=== PATIENT | male | born 1955 | race Caucasian/White ===

== ENCOUNTER 2016-03-09 10:14 | Emergency (ER) | payer OTHER ==
[2016-03-09 10:30] VITALS: TEMP 97
[2016-03-09] MEDS ORDERED: IPRATROPIUM-ALBUTEROL 3 ML NEB INHALATION STA (10:46)
[2016-03-09] MEDS ORDERED: KETOROLAC 30 MG/ML 1 ML VIAL IVP STA (10:46)
[2016-03-09] MEDS ORDERED: BENZONATATE 100 MG CAP PO STA (10:46)
--- NOTE | 2016-03-09 10:55 | ED ---
General Adult HPI - General Chief complaint: Abdominal Pain Stated complaint: left side pain x 3 days Time Seen by Provider: 03/09/16 10:40 Source: patient, RN notes reviewed Mode of arrival: ambulatory Limitations: no limitations - History of Present Illness Initial comments: 60-year-old male presents to emergency room chief complaint of left-sided rib pain. Patient states that he's had a cough for about 5 days now. Patient states about 3 days ago he started noticing pain to the left side of the ribs whenever she coughed in pain when he twists and moves. Patient states that he has had some sputum production that is clearing color when he coughs. Patient does admit to a history of asthma and a history of smoking. Patient states it feels like an achy type pain as if someone punched him in the left side. Patient states he does not feel short of breath with this. Patient states that he does have a history of heart attacks but states this feels nothing like that. Patient states that he was concerned due to the continued coughing pains without that he should be evaluated.Patient denies any recent fever, chills, shortness of breath, back pain, abdominal pain, nausea vomiting, numbness or tingling, dysuria or hematuria, constipation or diarrhea, headaches or visual changes, or any other current symptoms. - Related Data Home Medications Medication Instructions Recorded Confirmed Aspirin 81 mg PO DAILY 10/07/15 03/09/16 Atenolol 25 mg PO BID 10/07/15 03/09/16 Clopidogrel [Plavix] 75 mg PO DAILY 10/07/15 03/09/16 Naproxen 500 mg PO Q12HR 10/07/15 03/09/16 Ranitidine HCl [Zantac] 150 mg PO BID 10/07/15 03/09/16 Albuterol Inhaler [Ventolin Hfa 1 - 2 puff INHALATION RT-Q6H PRN 03/09/16 Inhaler] Beclomethasone Dipropionate [Qvar 1 puff INHALATION RT-DAILY 03/09/16 03/09/16 80 mcg] Cetirizine HCl [Zyrtec] 10 mg PO DAILY 03/09/16 03/09/16 Fluticasone Nasal [place] [Flonase 2 spr EA NOSTRIL DAILY PRN 03/09/16 03/09/16 Nasal [place]] Loratadine [Claritin] 10 mg PO DAILY 03/09/16 03/09/16 Testosterone Cypionate 200 mg IM Q7D 03/09/16 03/09/16 [Depo-Testosterone] Previous Rx's Medication Instructions Recorded Atorvastatin [Lipitor] 80 mg PO HS #30 tab 08/18/13 Lisinopril [Zestril] 2.5 mg PO DAILY #30 tab 08/18/13 Nitroglycerin Sl Tabs [Nitrostat] 0.4 mg SUBLINGUAL Q5M PRN #20 tab 08/18/13 HYDROcodone/APAP 5-325MG [Ross 1 tab PO Q4HR PRN #12 tab 10/07/15 5-325] Albuterol Inhaler [Ventolin Hfa 1 - 2 puff INHALATION Q4-6H PRN #1 03/09/16 Inhaler] inhaler Benzonatate [Tessalon Perles] 100 mg PO TID #20 cap 03/09/16 Hydrocodone/Acetaminophen [Ross 1 each PO Q6HR PRN #20 tab 03/09/16 5-325] Levofloxacin [Levaquin] 750 mg PO DAILY #5 tab 03/09/16 Allergies Allergy/AdvReac Type Severity Reaction Status Date / Time No Known Allergies Allergy Verified 03/09/16 12:33 Review of Systems ROS Statement: Those systems with pertinent positive or pertinent negative responses have been documented in the HPI. ROS Other: All systems not noted in ROS Statement are negative. Past Medical History Past Medical History: Coronary Artery Disease (CAD) History of Any Multi-Drug Resistant Organisms: None Reported Past Surgical History: Heart Catheterization With Stent Past Anesthesia/Blood Transfusion Reactions: No Reported Reaction Past Psychological History: No Psychological Hx Reported Smoking Status: Former smoker Past Alcohol Use History: Rare Past Drug Use History: None Reported General Exam - General Exam Comments Initial Comments: General: The patient is awake and alert, in no distress, and does not appear acutely ill. Eye: Pupils are equal, round and reactive to light, extra-ocular movements are intact; there is normal conjunctiva bilaterally. No signs of icterus. Ears, nose, mouth and throat: There are moist mucous membranes and no oral lesions. Neck: The neck is supple, there is no tenderness. Cardiovascular: There is a regular rate and rhythm. No murmur, rub or gallop is appreciated. Tenderness with patient along the left lower rib cage. Respiratory: Lungs are clear to auscultation, respirations are non-labored, breath sounds are equal. No wheezes, stridor, rales, or rhonchi. Gastrointestinal: Soft, non-distended, non-tender abdomen without masses or organomegaly noted. There is no rebound or guarding present. No CVA tenderness. Bowel sounds are unremarkable. Back: There is no tenderness to palpation in the midline. Patient does notice pain to the left side of the rib cage with twisting. There is no obvious deformity. No rashes noted. Musculoskeletal: Normal ROM, no tenderness, There is no pedal edema. There is no calf tenderness or swelling. Sensation intact. Pulses equal bilaterally 2+. Neurological: CN II-XII intact, There are no obvious motor or sensory deficits. Coordination appears grossly intact. Speech is normal. Skin: Skin is warm and dry and no rashes or lesions are noted. Psychiatric: Cooperative, appropriate mood & affect, normal judgment. Limitations: no limitations Course Vital Signs 03/09/16 03/09/16 03/09/16 10:26 11:17 11:23 Temperature 97.0 F L Pulse Rate 89 88 90 Respiratory 18 Rate Blood Pressure 152/86 O2 Sat by Pulse 95 Oximetry Medical Decision Making - Medical Decision Making 60-year-old male presents emergency Department what appears to be a costochondritis. Due to the patient's history and we will get blood work and assess an EKG on the patient. We will also give him medication to help with his discomfort. At some x-ray and lab work was reviewed. At this time the x- ray does show a left-sided pneumonia. Patient also doesn't fit of left-sided costochondritis from the cough. We will start her on antibiotics and inhaler pain medication as well as cough suppressant. We did discuss follow-up and return parameters. Patient is in agreement with this plan and all his questions have been answered. He will be discharged. - Lab Data Result diagrams: 03/09/16 11:10 03/09/16 11:10 Lab Results 03/09/16 03/09/16 03/09/16 Range/Units 11:10 11:10 11:10 WBC 11.1 H (3.8-10.6) k/uL RBC 5.17 (4.30-5.90) m/uL Hgb 16.4 (13.0-17.5) gm/dL Hct 50.4 (39.0-53.0) % MCV 97.6 (80.0-100.0) fL MCH 31.6 (25.0-35.0) pg MCHC 32.4 (31.0-37.0) g/dL RDW 13.7 (11.5-15.5) % Plt Count 277 (150-450) k/uL Neutrophils % 76 % Lymphocytes % 14 % Monocytes % 5 % Eosinophils % 2 % Basophils % 1 % Neutrophils # 8.4 H (1.3-7.7) k/uL Lymphocytes # 1.5 (1.0-4.8) k/uL Monocytes # 0.6 (0-1.0) k/uL Eosinophils # 0.2 (0-0.7) k/uL Basophils # 0.1 (0-0.2) k/uL PT (9.0-12.0) sec INR (<1.1) APTT (22.0-30.0) sec D-Dimer (<0.60) mg/L FEU Sodium 142 (137-145) mmol/L Potassium 4.6 (3.5-5.1) mmol/L Chloride 104 (98-107) mmol/L Carbon Dioxide 26 (22-30) mmol/L Anion Gap 12 mmol/L BUN 12 (9-20) mg/dL Creatinine 1.01 (0.66-1.25) mg/dL Est GFR (MDRD) Af Amer >60 (>60 ml/min/1.73 sqM) Est GFR (MDRD) Non-Af >60 (>60 ml/min/1.73 sqM) Glucose 134 H (74-99) mg/dL Calcium 9.3 (8.4-10.2) mg/dL Magnesium 2.0 (1.6-2.3) mg/dL Total Bilirubin 0.7 (0.2-1.3) mg/dL AST 29 (17-59) U/L ALT 36 (21-72) U/L Alkaline Phosphatase 77 (38-126) U/L Total Creatine Kinase 160 (55-170) U/L CK-MB (CK-2) 3.8 H* (0.0-2.4) ng/mL CK-MB (CK-2) Rel Index 2.4 Troponin I <0.012 (0.000-0.034) ng/mL Total Protein 7.5 (6.3-8.2) g/dL Albumin 4.0 (3.5-5.0) g/dL 03/09/16 Range/Units 11:10 WBC (3.8-10.6) k/uL RBC (4.30-5.90) m/uL Hgb (13.0-17.5) gm/dL Hct (39.0-53.0) % MCV (80.0-100.0) fL MCH (25.0-35.0) pg MCHC (31.0-37.0) g/dL RDW (11.5-15.5) % Plt Count (150-450) k/uL Neutrophils % % Lymphocytes % % Monocytes % % Eosinophils % % Basophils % % Neutrophils # (1.3-7.7) k/uL Lymphocytes # (1.0-4.8) k/uL Monocytes # (0-1.0) k/uL Eosinophils # (0-0.7) k/uL Basophils # (0-0.2) k/uL PT 10.7 (9.0-12.0) sec INR 1.1 (<1.1) APTT 24.1 (22.0-30.0) sec D-Dimer 0.25 (<0.60) mg/L FEU Sodium (137-145) mmol/L Potassium (3.5-5.1) mmol/L Chloride (98-107) mmol/L Carbon Dioxide (22-30) mmol/L Anion Gap mmol/L BUN (9-20) mg/dL Creatinine (0.66-1.25) mg/dL Est GFR (MDRD) Af Amer (>60 ml/min/1.73 sqM) Est GFR (MDRD) Non-Af (>60 ml/min/1.73 sqM) Glucose (74-99) mg/dL Calcium (8.4-10.2) mg/dL Magnesium (1.6-2.3) mg/dL Total Bilirubin (0.2-1.3) mg/dL AST (17-59) U/L ALT (21-72) U/L Alkaline Phosphatase (38-126) U/L Total Creatine Kinase (55-170) U/L CK-MB (CK-2) (0.0-2.4) ng/mL CK-MB (CK-2) Rel Index Troponin I (0.000-0.034) ng/mL Total Protein (6.3-8.2) g/dL Albumin (3.5-5.0) g/dL 03/09/16 12:42 normal sinus rhythm 100 bpm, normal axis, no atopy, no S-T depressions or elevations, - Radiology Data Radiology results: report reviewed, image reviewed Disposition Clinical Impression: Pneumonia involving left lung, Costochondritis, acute Disposition: HOME SELF-CARE Condition: Stable Instructions: Bacterial Pneumonia (ED), Costochondritis (ED) Additional Instructions: Please use medication as discussed. Please follow up with family doctor if symptoms have not improved over the next two days. Please return to the emergency room if your symptoms increase or worsen or for any other concerns. Prescriptions: Albuterol Inhaler [Ventolin Hfa Inhaler] 1 - 2 puff INHALATION Q4-6H PRN #1 inhaler PRN Reason: Cough Benzonatate [Tessalon Perles] 100 mg PO TID #20 cap Hydrocodone/Acetaminophen [Ross 5-325] 1 each PO Q6HR PRN #20 tab PRN Reason: Pain Levofloxacin [Levaquin] 750 mg PO DAILY #5 tab Referrals: Cecilio Montero MD [Primary Care Provider] - 1-2 days Time of Disposition: 12:45
[2016-03-09 11:31] LABS: Basophils # (A) 0.1 k/uL (0-0.2); Basophils % (A) 1 %; CH 31.8; CHCM 32.7; Eosinophils # (A) 0.2 k/uL (0-0.7); Eosinophils % (A) 2 %; HCT 50.4 % (39.0-53.0); HDW 2.24; HGB 16.4 gm/dL (13.0-17.5); Luc # (Auto) 0.28; Luc % (Auto) 3; Lymphocytes # (A) 1.5 k/uL (1.0-4.8); Lymphocytes % (A) 14 %; MCH 31.6 pg (25.0-35.0); MCHC 32.4 g/dL (31.0-37.0); MCV 97.6 fL (80.0-100.0); Mean Platelet Volume 6.4; Monocytes # (A) 0.6 k/uL (0-1.0); Monocytes % (A) 5 %; Neutrophils # (A) 8.4 k/uL (1.3-7.7); Neutrophils % (A) 76 %; RBC 5.17 m/uL (4.30-5.90); RDW 13.7 % (11.5-15.5); WBC 11.1 k/uL (3.8-10.6); WBC (Perox) 11.03
[2016-03-09 11:57] LABS: ALT 36 U/L (21-72); AST 29 U/L (17-59); Alkaline Phosphatase 77 U/L (38-126); Anion Gap 12 mmol/L; Blood Urea Nitrogen 12 mg/dL (9-20); Calcium 9.3 mg/dL (8.4-10.2); Carbon Dioxide 26 mmol/L (22-30); Chloride 104 mmol/L (98-107); Glucose 134 mg/dL (74-99); Non-African American GFR(MDRD) >60 (>60 ml/min/1.73 sqM); Potassium 4.6 mmol/L (3.5-5.1); Sodium 142 mmol/L (137-145); Total Bilirubin 0.7 mg/dL (0.2-1.3); Total Protein 7.5 g/dL (6.3-8.2)
--- NOTE | 2016-03-09 11:58 | XR ---
EXAMINATION TYPE: XR chest 2V DATE OF EXAM: 03/09/2016 11:52 AM COMPARISON: 08/16/2013 INDICATION: Chest pain TECHNIQUE: Frontal and lateral views of the chest are obtained. FINDINGS: The heart size is normal. The pulmonary vasculature is normal. Subtle left perihilar infiltrate may be present. Correlate for atelectasis or early pneumonia. Consid er viral pneumonia. IMPRESSION: 1. There may be a subtle left perihilar infiltrate present. Clinical correlation recommended.
[2016-03-09 12:07] LABS: INR 1.1 (<1.1); Partial Thromboplastin Time 24.1 sec (22.0-30.0); Prothrombin Time 10.7 sec (9.0-12.0)
[2016-03-09 12:17] LABS: Creatine Kinase 160 U/L (55-170)
[2016-03-09 12:30] LABS: Troponin I <0.012 ng/mL (0.000-0.034)
[2016-03-09 12:32] LABS: Creatine Kinase MB 3.8 ng/mL (0.0-2.4)
[2016-03-09 13:00] VITALS: BP 152/70; PULSE 91; RESP 20
== END 2016-03-09 13:00 | disposition home or self-care (01) ==
LOC: EC 10:14
DX: J18.9 Pneumonia, unspecified organism (principal); M94.0 Chondrocostal junction syndrome [Tietze]; I25.10 Atherosclerotic heart disease of native coronary artery without angina pectoris; Z87.891 Personal history of nicotine dependence; Z95.5 Presence of coronary angioplasty implant and graft; Z79.82 Long term (current) use of aspirin; Z79.899 Other long term (current) drug therapy; Z79.02 Long term (current) use of antithrombotics/antiplatelets; Z79.1 Long term (current) use of non-steroidal anti-inflammatories (NSAID); Z79.51 Long term (current) use of inhaled steroids
CPT/HCPCS: 99284; 96374; 36415; 94640; 93005; 85379; 80053; 82550; 82553; 83735; 84484; 85025; 85610; 85730; 71020; J1885

== ENCOUNTER → 2016-03-14 | Outpatient (CLI) | payer OTHER ==
--- NOTE | 2016-03-14 09:41 | CT ---
EXAMINATION TYPE: CT chest w con DATE OF EXAM: 03/14/2016 9:30 AM COMPARISON: 08/09/2015, chest x-ray 03/09/2016 HISTORY: Abn CXR, Lt sided chest pain CT DLP: 841 mGycm Automated exposure control for dose reduction was used. CONTRAST: CT scan of the chest is performed with IV Contrast, patient injected with 100 ml mL of Omnipaque 300. FINDINGS: LUNGS: The lungs are grossly clear, there is no consolidative pneumonia. There is a lobulated nodule in the anterior segment left upper lobe measuring 9 mm. Additional smaller 3 mm nodule seen in image 42 within the left upper lobe. Calcified nodule seen image 46 within the superior segment right lower lobe. Underlying changes of COPD suspected.. There is no pleural effusion or pneumothorax seen. T he tracheobronchial tree is patent. MEDIASTINUM: There are no greater than 1 cm hilar or mediastinal lymph nodes. No pericardial effusi on is seen. Coronary artery calcification noted. OTHER: Mild hypertrophic changes of the spine. IMPRESSION: 1. No evidence to suggest pneumonia or infiltrate. However there is a 1 cm nodular density in the lef t upper lobe. On the coronal images could potentially be postinflammatory. Neoplastic process not exc luded. New from the prior exam. Recommend one-month follow-up CT chest. If finding persists then isak d recommend PET scan. 2. Additional tiny less than 5 mm pulmonary nodules. 3. Correlate for COPD
== END | disposition home or self-care (01) ==
LOC: RADCTMAIN 08:56
PROVIDERS: ATTEND Internal Medicine
DX: J98.4 Other disorders of lung (principal); R91.8 Other nonspecific abnormal finding of lung field; R07.9 Chest pain, unspecified; R05 Cough
CPT/HCPCS: 71260; Q9967

== ENCOUNTER → 2016-03-24 | Outpatient (CLI) | payer OTHER ==
--- NOTE | 2016-03-24 15:33 | NM ---
EXAMINATION TYPE: NM bone scan whole body DATE OF EXAM: 03/24/2016 3:26 PM COMPARISON: NONE HISTORY: R91.1 Lt upper Lobe Nodule, R07.81 Rib Pain Delayed whole-body scanning was performed following the injection of 25.8 mCi Tc 99m MDP. Images acq uired 3 hours post injection. FINDINGS: Probable degenerative uptake involving the upper cervical segment to the right of midline. Degenerati ve uptake about the shoulders, sternoclavicular joints, mid thoracic spine and lower lumbar spine. No intense uptake to suggest metastatic disease at this time. IMPRESSION: 1. No convincing evidence to suggest metastatic disease at this time. 2. Probable degenerative uptake of the cervical spine which can be confirmed radiographically.
== END | disposition home or self-care (01) ==
LOC: RADNMMAIN 11:21
PROVIDERS: ATTEND Internal Medicine
DX: R07.81 Pleurodynia (principal)
CPT/HCPCS: 78306; A9503

== ENCOUNTER → 2016-04-04 | Outpatient (CLI) | payer OTHER ==
--- NOTE | 2016-04-04 15:59 | CT ---
EXAMINATION TYPE: CT abdomen w con DATE OF EXAM: 04/04/2016 2:57 PM COMPARISON: NONE HISTORY: Left sided pain for [address] DLP: 1388 mGycm Automated exposure control for dose reduction was used. TECHNIQUE: Helical acquisition of images was performed from the lung bases through the top of iliac crest to include entire abdomen. CONTRAST: Performed with Oral Contrast and with IV Contrast, patient injected with 100 mL of Omnipaque 300. FINDINGS: LUNG BASES: Tiny granuloma noted within the right lower lobe appears calcified. Correlate for COPD. L inear changes involving the left lung base suggestive of atelectasis or scar.. LIVER/GB: No significant abnormality is appreciated. PANCREAS: No significant abnormality is seen. SPLEEN: No significant abnormality is seen. ADRENALS: No significant abnormality is seen. KIDNEYS: No significant abnormality is seen. BOWEL: Changes of colonic diverticulosis.. LYMPH NODES: No pathologic adenopathy. OSSEOUS STRUCTURES: No significant abnormality is seen. OTHER: Atherosclerotic changes aorta. IMPRESSION: NO ACUTE PROCESS.
== END | disposition home or self-care (01) ==
LOC: RADCTMAIN 13:51
PROVIDERS: ATTEND Internal Medicine
DX: R10.12 Left upper quadrant pain (principal); R91.1 Solitary pulmonary nodule
CPT/HCPCS: 74160; Q9967

== ENCOUNTER → 2017-04-11 | Outpatient (CLI) | payer OTHER ==
--- NOTE | 2017-04-11 14:11 | CT ---
EXAMINATION TYPE: CT chest wo con DATE OF EXAM: 04/11/2017 COMPARISON: Prior CT chest study March 14, [address] low-dose lung screening study August 09, 2015 HISTORY: Hemoptysis CT DLP: 812 mGycm. Automated Exposure Control for Dose Reduction was Utilized. TECHNIQUE: CT scan of the thorax is performed without IV contrast. FINDINGS: LUNGS: Mild underlying emphysematous change is present. No suspicious nodule or mass is present. Ther e is interval resolution of nodular consolidation in the anterior left upper lobe from prior study. N o pleural effusion or pneumothorax is seen bilaterally. No suspicious consolidation or focal groundgl ass opacity is seen. Linear scarring in the inferior lingula and left lung base near diaphragm is red emonstrated. The tracheobronchial tree is patent. Slightly elevated left hemidiaphragm is again seen. MEDIASTINUM: Lack of IV contrast is noted to limit evaluation for mediastinal and especially hilar ad enopathy. There are no definitive greater than 1 cm hilar or mediastinal lymph nodes. No cardiomega ly or pericardial effusion is seen. There is coronary artery calcification and/or right coronary sten t noted. OTHER: Visualized liver is heterogeneously hypodense consistent with fatty infiltration. Some mild fa t replaced atrophy of the pancreas is seen. [id number] multilevel spurring in the midthoracic s pine is present. IMPRESSION: Mild emphysematous change without acute pulmonary process. Interval resolution of left an terior upper lobe nodular consolidation. No significant new or acute findings seen to account for pat ient's symptoms of hemoptysis.
== END | disposition home or self-care (01) ==
LOC: RADCTMAIN 08:29
PROVIDERS: ATTEND Internal Medicine Critical Care Medicine
DX: J43.9 Emphysema, unspecified (principal); R04.2 Hemoptysis
CPT/HCPCS: 71250

== ENCOUNTER → 2018-09-08 | Outpatient (CLI) | payer OTHER ==
--- NOTE | 2018-09-08 15:55 | MR ---
EXAMINATION TYPE: MR knee RT wo con DATE OF EXAM: 09/08/2018 COMPARISON: Radiographs of the knees dated 02/19/2015. HISTORY: Pain in right knee TECHNIQUE: Multiplanar, multisequence imaging of the right knee is performed without IV contrast. FINDINGS: MEDIAL MENISCUS: There is a radial tear of the free edge of the meniscal body and posterior horn of t he medial meniscus. Very small 2 mm parameniscal cyst is present. 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 CRUCIATE LIGAMENTS: The anterior and posterior cruciate ligaments are intact and unremarkable. COLLATERAL LIGAMENTS: The medial collateral ligament and lateral collateral ligament complex are inta ct. However there is high signal seen superficial and deep to the medial collateral ligament. EXTENSOR MECHANISM: Visualized quadriceps and patellar tendons are intact. There is minimal increased signal of the originating fibers of the patellar tendon and insertional fibers of the quadriceps ten don. EFFUSION: There is a small suprapatellar joint effusion with thickening of the superior patellar ret inaculum. Internal complexity within the joint effusion is indicative of mild synovitis. Patellar ret inacula are intact. POPLITEAL CYST: No popliteal/pleitez cyst. TRICOMPARTMENT SPACES: Small tricompartmental osteophytes are seen. Joint spaces are maintained. CARTILAGE: There is generalized cartilaginous thinning with partial-thickness cartilaginous defect of the weightbearing surface measuring 1.8 cm with corresponding partial-thickness defect of the tibial plateau measuring approximately 1 cm. Within the medial compartment there is signal heterogeneity of the cartilage without focal defect. Within the patellofemoral compartment there is multifocal fissur ing and undermining with near complete loss of the medial patellar facet cartilage and some subchondr al cyst formation of the patella. BONE MARROW SIGNAL: Interosseous ganglion cyst is seen of the tibia. OTHER: Nonspecific subcutaneous edema is present of the infrapatellar soft tissues. Fluid is seen at the myotendinous junction ventrally of the popliteus muscle indicative of low-grade tear. IMPRESSION: 1. Radial tear of the free edge of the medial meniscal body and posterior horn of the medial meniscus with associated 2 mm parameniscal cyst. 2. 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 3. Mild tricompartmental arthropathy and moderate chondrosis most severe in the patellofemoral compar tment as detailed above. 4. Findings compatible with mild medial collateral ligament sprain and insertional tendinosis of the quadriceps tendon as well as originating fiber tendinosis of the patellar tendon. 5. Small complex suprapatellar joint effusion indicative of synovitis and superior plical thickening, correlate for plical syndrome.
== END | disposition home or self-care (01) ==
LOC: RADMRIMAIN 14:38
PROVIDERS: ATTEND Internal Medicine
DX: S83.241A Other tear of medial meniscus, current injury, right knee, initial encounter (principal); M17.11 Unilateral primary osteoarthritis, right knee; M65.861 Other synovitis and tenosynovitis, right lower leg; M67.863 Other specified disorders of tendon, right knee

== ENCOUNTER → 2018-10-22 | Outpatient (CLI) | payer OTHER ==
[2018-10-22 12:52] LABS: Basophils # (A) 0.1 k/uL (0-0.2); Basophils % (A) 2 %; Eosinophils # (A) 0.4 k/uL (0-0.7); Eosinophils % (A) 6 %; HCT 41.3 % (39.0-53.0); HGB 13.1 gm/dL (13.0-17.5); Lymphocytes # (A) 1.8 k/uL (1.0-4.8); Lymphocytes % (A) 26 %; MCH 30.7 pg (25.0-35.0); MCHC 31.8 g/dL (31.0-37.0); MCV 96.6 fL (80.0-100.0); Mean Platelet Volume 6.7; Monocytes # (A) 0.4 k/uL (0-1.0); Monocytes % (A) 6 %; Neutrophils # (A) 3.8 k/uL (1.3-7.7); Neutrophils % (A) 56 %; Platelet Count 291 k/uL (150-450); RBC 4.28 m/uL (4.30-5.90); RDW 14.9 % (11.5-15.5); WBC 6.8 k/uL (3.8-10.6)
[2018-10-22 19:03] LABS: African American GFR (CKD) 93.7 (60.0-200.0); Albumin 3.9 g/dL (3.80-4.90); Albumin/Globulin Ratio 1.86 (1.60-3.17); Anion Gap 6.6 mmol/L (4.00-12.00); Calcium 8.9 mg/dL (8.7-10.3); Carbon Dioxide 27.4 mmol/L (21.6-31.8); Globulin 2.1 g/dL (1.6-3.3); Potassium 4.7 mmol/L (3.5-5.5); Total Bilirubin 0.2 mg/dL (0.2-1.2)
== END | disposition home or self-care (01) ==
LOC: LABWHC1 11:49
PROVIDERS: ATTEND Internal Medicine
DX: Z01.812 Encounter for preprocedural laboratory examination (principal)
CPT/HCPCS: 36415; 80053; 85025

== ENCOUNTER → 2018-12-17 | Outpatient (CLI) | payer OTHER ==
--- NOTE | 2018-12-17 16:19 | CT ---
EXAMINATION TYPE: CT chest wo con DATE OF EXAM: 12/17/2018 COMPARISON: CT chest 04/11/2017 HISTORY: SOB CT DLP: 1300.6 mGycm, Automated exposure control for dose reduction was used. CONTRAST: None TECHNIQUE: Axial images were obtained at 1 mm thick sections at 10 mm intervals. This will limit po rtions of the examination which may not be visualized within the [id number]. Images were obtained in the prone and supine views. FINDINGS: Portion of the thyroid visualized is normal. No suspicious lung nodules or focal infiltrat es are present.r a benign-appearing calcified granulomas in the posterior lateral right lung 0.3 cm. Series 9 image 23. No enlarged mediastinal or hilar adenopathy is evident. The ascending aorta diameter at the level o f the main pulmonary artery is 3.5 cm. The main pulmonary artery diameter at the bifurcation is 2.6 cm. Moderate coronary artery calcification is present. Limited CT sections are obtained through the upper abdomen. Abdomen is essentially unremarkable. IMPRESSIONS: 1. Normal High Resolution Chest CT. 2. Moderate coronary artery calcification
== END ==
LOC: RADCTMAIN 15:24
PROVIDERS: ATTEND Internal Medicine
DX: I25.10 Atherosclerotic heart disease of native coronary artery without angina pectoris (principal); R05 Cough; R06.02 Shortness of breath
CPT/HCPCS: 71250

== ENCOUNTER → 2018-12-22 | Outpatient (CLI) | payer OTHER ==
[2018-12-22 19:50] LABS: T4, Free (Free Thyroxine) 0.8 ng/dL (0.80-1.80)
== END | disposition home or self-care (01) ==
LOC: LABWHC1 13:28
PROVIDERS: ATTEND Internal Medicine Interventional Cardiology
DX: E78.2 Mixed hyperlipidemia (principal)
CPT/HCPCS: 36415; 84439; 84443

== ENCOUNTER 2019-08-12 12:56 | Emergency (ER) | payer OTHER ==
[2019-08-12 13:32] VITALS: BP 140/79; PULSE 88; RESP 20; TEMP 97.2
[2019-08-12] MEDS ORDERED: KETOROLAC 60 MG/2 ML VIAL IM STA (13:44)
--- NOTE | 2019-08-12 13:47 | ED ---
General Adult HPI - General Chief complaint: Extremity Problem,Nontraumatic Stated complaint: Left knee pain Time Seen by Provider: 08/12/19 13:25 Source: patient, RN notes reviewed Limitations: altered mental status - History of Present Illness Initial comments: Patient is a pleasant 62-year-old male presenting to the emergency Department with complaints of left knee pain. Onset of symptoms was yesterday. Patient does do a lot of walking. Patient has a known bad right knee that is considering surgery. Patient states after walking a lot yesterday his left knee has been bothering him. Discomfort is left anterior lower knee. No leg pain. No calf pain. Patient normally does not have discomfort of his left knee. No fever or redness or swelling. - Related Data Home Medications Medication Instructions Recorded Confirmed Aspirin 81 mg PO DAILY 10/07/15 03/09/16 Atenolol 25 mg PO BID 10/07/15 03/09/16 Clopidogrel [Plavix] 75 mg PO DAILY 10/07/15 03/09/16 Naproxen 500 mg PO Q12HR 10/07/15 03/09/16 Ranitidine HCl [Zantac] 150 mg PO BID 10/07/15 03/09/16 Albuterol Inhaler (Mhu) [Ventolin 1 - 2 puff INHALATION RT-Q6H PRN 03/09/16 03/09/16 Hfa Inhaler] Beclomethasone Dipropionate [Qvar 1 puff INHALATION RT-DAILY 03/09/16 03/09/16 80 mcg] Cetirizine HCl [Zyrtec] 10 mg PO DAILY 03/09/16 03/09/16 Fluticasone [place] [Flonase 2 spr EA NOSTRIL DAILY PRN 03/09/16 03/09/16 Nas[place]] Loratadine [Claritin] 10 mg PO DAILY 03/09/16 03/09/16 Testosterone Cypionate 200 mg IM Q7D 03/09/16 03/09/16 [Depo-Testosterone] Previous Rx's Medication Instructions Recorded Atorvastatin [Lipitor] 80 mg PO HS #30 tab 08/18/13 Lisinopril [Zestril] 2.5 mg PO DAILY #30 tab 08/18/13 Nitroglycerin Sl Tabs [Nitrostat] 0.4 mg SUBLINGUAL Q5M PRN #20 tab 08/18/13 HYDROcodone/APAP 5-325MG [[place] 1 tab PO Q4HR PRN #12 tab 10/07/15 5-325] Albuterol Inhaler (Mhu) [Ventolin 1 - 2 puff INHALATION Q4-6H PRN #1 03/09/16 Hfa Inhaler (Mhu)] inhaler Benzonatate [Tessalon Perles] 100 mg PO TID #20 cap 03/09/16 Hydrocodone/Acetaminophen [[place] 1 each PO Q6HR PRN #20 tab 03/09/16 5-325] Levofloxacin [Levaquin] 750 mg PO DAILY #5 tab 03/09/16 Cyclobenzaprine [Flexeril] 10 mg PO TID PRN #12 tablet 08/12/19 Allergies Allergy/AdvReac Type Severity Reaction Status Date / Time No Known Allergies Allergy Verified 03/09/16 12:33 Review of Systems ROS Statement: Those systems with pertinent positive or pertinent negative responses have been documented in the HPI. ROS Other: All systems not noted in ROS Statement are negative. Constitutional: Denies: fever Eyes: Denies: eye pain ENT: Denies: ear pain Respiratory: Denies: cough Cardiovascular: Denies: chest pain Endocrine: Denies: fatigue Gastrointestinal: Denies: abdominal pain Genitourinary: Denies: dysuria Musculoskeletal: Reports: as per HPI. Denies: back pain Skin: Denies: rash Neurological: Denies: weakness Past Medical History Past Medical History: Coronary Artery Disease (CAD) History of Any Multi-Drug Resistant Organisms: None Reported Past Surgical History: Heart Catheterization With Stent Past Anesthesia/Blood Transfusion Reactions: No Reported Reaction Past Psychological History: No Psychological Hx Reported Smoking Status: Former smoker Past Alcohol Use History: Rare Past Drug Use History: None Reported General Exam Limitations: altered mental status General appearance: alert, in no apparent distress Head exam: Present: normocephalic Eye exam: Present: normal appearance Neck exam: Present: normal inspection Respiratory exam: Present: normal lung sounds bilaterally Cardiovascular Exam: Present: regular rate, normal rhythm Expanded Peripheral pulses: 2+: Posterior Tibialis (R), Posterior Tibialis (L), Dorsalis Pedis (R), Dorsalis Pedis (L) Extremities exam: Present: tenderness (Patient has mild tenderness left anterior medial knee below the joint in the area of the proximal tibia. No warmth or erythema. Distally the extremity is neurovascular intact.) Neurological exam: Present: alert. Absent: motor sensory deficit Psychiatric exam: Present: normal affect, normal mood Skin exam: Present: normal color. Absent: erythema Course Vital Signs 08/12/19 13:18 Temperature 97.2 F L Pulse Rate 88 Respiratory 20 Rate Blood Pressure 140/79 O2 Sat by Pulse 96 Oximetry Medical Decision Making - Medical Decision Making Patient reevaluated and updated. Patient is agreeable to Sean wrap. Patient would like to try a few muscle relaxers to see if that helps. Patient is advised follow-up with orthopedics. - Radiology Data Radiology results: image reviewed (X-ray left knee reveals no acute process) Disposition Clinical Impression: Knee pain, left Disposition: HOME SELF-CARE Condition: Stable Instructions (If sedation given, give patient instructions): Knee Sprain (ED) Additional Instructions: Please follow-up with orthopedics and primary care physician in the next couple days for recheck. Ice to affected area. Limited walking with left knee. Continue [id number] Motrin as needed. Return for increased pain, swelling, redness, fevers, worsening or changing symptoms or other concerns. Prescriptions: Cyclobenzaprine [Flexeril] 10 mg PO TID PRN #12 tablet PRN Reason: Pain Is patient prescribed a controlled substance at d/c from ED?: No Referrals: Cecilio Montero MD [Primary Care Provider] - 1-2 days Time of Disposition: 15:13
--- NOTE | 2019-08-12 14:55 | XR ---
EXAMINATION TYPE: XR knee complete LT DATE OF EXAM: 08/12/2019 CLINICAL HISTORY: pain TECHNIQUE: Three views of the left knee are obtained. COMPARISON: None. FINDINGS: There is no acute fracture/dislocation. The tri-compartment joint spaces appear within no rmal limits. The overlying soft tissue appears unremarkable. IMPRESSION: There is no acute fracture or dislocation ICD 10 NO FRACTURE, INITIAL EVALUATION
== END 2019-08-12 15:20 | disposition home or self-care (01) ==
LOC: EC 12:56
DX: M25.562 Pain in left knee (principal); R41.82 Altered mental status, unspecified; I25.10 Atherosclerotic heart disease of native coronary artery without angina pectoris; Z79.82 Long term (current) use of aspirin; Z79.02 Long term (current) use of antithrombotics/antiplatelets; Z79.1 Long term (current) use of non-steroidal anti-inflammatories (NSAID); Z95.5 Presence of coronary angioplasty implant and graft; Z87.891 Personal history of nicotine dependence
CPT/HCPCS: 73562; 96372; 99283; J1885

== ENCOUNTER → 2019-08-16 | Outpatient (CLI) | payer OTHER ==
[2019-08-16 16:00] LABS: HCT 43.6 % (39.0-53.0); HGB 14.3 gm/dL (13.0-17.5); MCH 32.7 pg (25.0-35.0); MCHC 32.9 g/dL (31.0-37.0); MCV 99.5 fL (80.0-100.0); Platelet Count 250 k/uL (150-450); RBC 4.38 m/uL (4.30-5.90); WBC 8.8 k/uL (3.8-10.6)
[2019-08-16 16:02] LABS: Appearance,Urine Clear (Clear); Bilirubin,Urine Negative (Negative); Blood,Urine Negative (Negative); Color,Urine Yellow; Glucose,Urine (UA) Negative (Negative); Hyaline Casts,Urine 7 /lpf (0-2); Ketones,Urine Negative (Negative); Leukocyte Esterase,Urine Trace (Negative); Mucus,Urine Rare /hpf; Nitrite,Urine Negative (Negative); Protein,Urine Negative (Negative); RBC,Urine 1 /hpf (0-5); Specific Gravity,Urine 1.021 (1.001-1.035); Squamous Epithelial Cell,Urine <1 /hpf (0-4); Urobilinogen,Urine <2.0 mg/dL (<2.0); WBC,Urine 3 /hpf (0-5)
[2019-08-16 16:10] LABS: Prothrombin Time 10.2 sec (9.0-12.0)
[2019-08-16 16:11] LABS: Calcium 8.8 mg/dL (8.4-10.2); Potassium 4.3 mmol/L (3.5-5.1); Total Bilirubin 0.3 mg/dL (0.2-1.3); Total Protein 7.4 g/dL (6.3-8.2)
== END | disposition home or self-care (01) ==
LOC: LABPAT 14:21
PROVIDERS: ATTEND Orthopaedic Surgery
DX: Z01.812 Encounter for preprocedural laboratory examination (principal); Z11.59 Encounter for screening for other viral diseases
CPT/HCPCS: 80053; 85027; 85610; 85730; 81001; 87070; 36415; U0003

== ENCOUNTER 2019-08-29 10:35 | Day surgery (SDC) | payer OTHER ==
[2019-08-26 09:29] VITALS: BMI 41.1
[~2019-08-29 10:35] MED LIST: ACETAMINOPHEN TAB 500 MG TAB PO ONE; MELOXICAM 7.5 MG TAB PO ONE; ONDANSETRON 4 MG/2 ML VIAL IVP ONE; TRANEXAMIC ACID 1,000 MG in SODIUM CHLORIDE 0.9% 100 ML IVPB ONE; ceFAZolin 3 GM in SODIUM CHLORIDE 0.9% 100 ML IVPB ONE
[2019-08-29] MEDS ORDERED: ACETAMINOPHEN TAB 500 MG TAB ONE ×2 (10:58→11:22)
[2019-08-29] MEDS ORDERED: ONDANSETRON 4 MG/2 ML VIAL ONE (10:59)
[2019-08-29] MEDS ORDERED: LIDOCAINE 1% (10MG/ML) FOR IV START INTRADERMA ONE (11:30)
[2019-08-29] MEDS: LACTATED RINGERS 1,000 ML IV SCH ×4 (11:32→21:30)
[2019-08-29] MEDS ORDERED: DEXAMETHASONE SOD PHOSPHATE 10 MG/ML 1 ML VIAL IV ONE (11:32)
[2019-08-29] MEDS ORDERED: MIDAZOLAM 2 MG/2 ML VIAL IVP ONE (11:48)
[2019-08-29] MEDS ORDERED: SODIUM CHLORIDE 0.9% 100 ML BAG ONE (12:10)
[2019-08-29] MEDS ORDERED: PROPOFOL 10 MG/ML 20 ML VIAL IV ONE (12:10)
[2019-08-29] MEDS ORDERED: PHENYLEPHRINE-0.9% NACL SYG 1 MG/10 ML SYRINGE ONE (12:10)
[2019-08-29] MEDS ORDERED: TRANEXAMIC ACID 1,000 MG/10 ML VIAL ONE (12:10)
[2019-08-29] MEDS ORDERED: MIDAZOLAM 2 MG/2 ML VIAL ONE (12:10)
[2019-08-29] MEDS ORDERED: fentaNYL (PF) 50 MCG/ML 2 ML AMP ONE (12:10)
[2019-08-29] MEDS ORDERED: ceFAZolin 3,000 MG in SODIUM CHLORIDE 0.9% IRRIGATIO 3,000 ML IRRIGATION ONE (12:16)
[2019-08-29] MEDS: ROPIVACAINE 246.25 MG, EPINEPHrine 0.5 MG, KETOROLAC 30 MG, cloNIDine HCL/PF 80 MCG, WA... MISCELLANE ONE ×10 (12:47→13:18)
--- NOTE | 2019-08-29 14:05 | P.OP ---
Date of Procedure: 08/29/19 Procedure(s) Performed: PREOPERATIVE DIAGNOSIS: Right knee severe osteoarthritis with genu varum POSTOPERATIVE DIAGNOSIS: Right knee severe osteoarthritis with genu varum OPERATION: Right knee cemented total replacement arthroplasty. ANESTHESIA: Spinal ESTIMATED BLOOD LOSS: 75 ml. DISTRIBUTION ASSOCIATE: Viry Urbano PA-C (assistance with: patient positioning, retraction, exposure, hemostasis, leg positioning, implantation, irrigation, closure, dressing) COMPLICATIONS: None apparent. COMPONENTS IMPLANTED: Persona system from [employer] INDICATIONS: Mr. Balderrama is a 64-year-old male with a history of right knee osteoarthritis. The patient's knee is end-stage, and conservative management has failed. The operation of knee replacement has been discussed at length in the office, as well as potential risks and complications. These are inclusive of, but not limited to: bleeding, infection, scarring, discomfort, blood vessel and nerve damage, need for further surgery, failure to relieve symptoms, persistence, recurrence, or worsening of problems, loosening, dislocation, wear, blood clot, pulmonary embolism, , gait dysfunction, stiffness, and other risks as discussed in the office. The patient elects to proceed and the consent form has been signed. PROCEDURE: The patient was taken to the operating room and positioned on the operating room table in the supine position. Anesthesia was initiated. Care was taken to make sure that all pressure points were adequately padded. The ope rative lower extremity was prepped and draped in the usual aseptic fashion using ChloraPrep. Ioban drape was used for the case and the patient received intravenous antibiotics within one hour of the incision. A pneumotourniquet and leg lockhart were used for the case. The limb was exsanguinated with an Esmarch bandage and the tourniquet was inflated to 350 mmHg. Time-out was called confirming the patient's identity, side, procedure and administration of antibiotics and tranexamic acid. The incision was then created midline directly over the knee, carried down through skin and into the subcutaneous tissues and down to fascia. Full thickness subcutaneous medial flap was developed. Medial parapatellar arthrotomy was performed and the interior of the knee was inspected. There was end-stage osteoarthritis of the knee with a mild to moderate genu varum type deformity. The fat pad was excised and proximal medial release on the tibia was completed using meticulous dissection and a curved osteotome. The anterior cruciate ligament was taken down. Note was made of significant attrition of the anterior and significant degenerative appearance of the cruciate ligaments. The exposure was excellent. The knee was flexed 90 degrees and the patella was everted. A spot was chosen on the femur approximately 1 cm anterior to the posterior cruciate ligament insertion and an intramedullary hole was created within the femur. The intramedullary guide was then set to 5 degrees of valgus. The distal cutting block was attached and pinned into position. An appropriate amount of distal femoral resection was set. The oscillating saw was then used to make the distal femoral cut. This cut was confirmed to be flat with the flat end of an osteotome. The retractors were placed around the tibia and the tibial surface was addressed. The angle and depth of resection was adjusted using an extramedullary cutting guide. The guide had a built-in 3 degree posterior slope cut. Once the cutting guide was adjusted appropriately and in line with the axis of the tibia and confirmed to be in good position in relation to the second metatarsal and transmalleolar axis, the tibial cut was then created with protection of the posterior neurovascular structures and the collateral ligaments. The tibial cut surface was removed and sized. Femoral sizing was then accomplished using anterior referencing. Care was taken to analyze the posterior condyles for signs of deficiency or severe wear, and adjustments to the guide were made, as appropriate. 3 degree external rotation pins were placed. The cutting jig for the femur was applied to these pins. The planned cuts were further analyzed prior to performing them with the oscillating saw. No femoral notching was produced. Bone fragments were removed and the cut surfaces were finished, as necessary, with a reciprocating saw. Spacer block technique was then used to confirm that the flexion and extension gaps were equal. Soft tissue releases and adjustment of the tibial and/or femoral cuts were made, as necessary, until the gaps were equal. This included release of the posterior cruciate ligament, which was excessively tight in this patient. The femur was then further finished for a posterior cruciate ligament substituting component. Patellar resurfacing was performed using a reamer. The size of the required patellar component was estimated and the patellar surface was then reamed down to a residual thickness which would recreate the cantwell thickness with the component. The exact placement of the patellar component was adjusted for position based on preoperative x-rays and intraoperative findings. Prior to placing trial components, anesthetic solution consisting of ropivicaine with epinephrine, ketorolac, and clonidine was injected carefully and methodically in a grid pattern using aspiration technique into the soft tissue around the knee circumferentially, starting with the deeper tissues first and progressing to fascia, and then finally the skin/subcutaneous tissue. Particular care was taken when injecting the posterior capsule. The trial components were inserted. The tibial tray was allowed to self center and the patella was noted to track very well. The position of the tibial component was marked and the tibia was then finished for a stemmed tibial component. Cement was mixed on the back table and applied to the final components. Trial components were removed and the cut surfaces of the bone were pulse lavaged thoroughly and dried. Cement was then applied to the tibial surface and pressurized into the surface using finger pressurization technique. The tibial component was then applied and excess cement was removed after it was impacted securely and noted to be flush with the cut surface. In similar fashion, the cement was applied to the cut femoral surface, pressurized in using finger pressurization and the component was impacted into place. Excess cement was removed. The polyethylene spacer was then implanted and locked into position. The patellar component was then applied in similar technique and a patellar clamp was used to hold the patella in place as the cement hardened. Once the cement had fully hardened, the knee was reinspected. Any other cement extrusion was removed and final kinematic testing showed range of motion from 0 to 130 degrees with excellent stability, both medially and laterally and appropriate alignment of the leg. Patellar tracking was excellent. The knee was then thoroughly pulse lavaged with normal saline. The tourniquet was deflated and hemostasis was obtained with electrocautery and IV tranexamic acid, 1 g given at the start of the operation and 1 g at the start of closure. Closure was with #2 Ethibond in the fascia/capsule and supplemented with #2 Quill, 2-0 Vicryl suture was used for the subcutaneous tissues and 3-0 Quill for the skin. Dermabond/Steri-Strips were then applied. A lightly compressive dressing was applied using Webril and an Sean wrap. [facility] and [facility] recovery room in stable condition. Sponge and needle counts were correct.
[2019-08-29] MEDS ORDERED: LACTATED RINGERS 1,000 ML IV ONE (14:35)
[2019-08-29] MEDS ORDERED: HYDROmorphone 1 MG/ML 1 ML SYRINGE IVP PRN (14:48)
[2019-08-29] MEDS ORDERED: ONDANSETRON 4 MG/2 ML VIAL IVP PRN (14:48)
[2019-08-29] MEDS ORDERED: HYDROmorphone 0.5 MG/0.5 ML SYRINGE IVP PRN ×2 (14:48)
[2019-08-29] MEDS ORDERED: NALOXONE 0.4 MG/ML 1 ML VIAL IV PRN (14:48)
[2019-08-29] MEDS ORDERED: BISACODYL 10 MG SUPP RECTAL PRN (14:48)
[2019-08-29] MEDS ORDERED: MAGNESIUM HYDROXIDE 2,400 MG/10 ML CUP PO PRN (14:48)
--- NOTE | 2019-08-29 15:09 | XR ---
EXAMINATION TYPE: XR knee limited RT DATE OF EXAM: 08/29/2019 CLINICAL HISTORY: Postoperative evaluation Two views of the right knee are submitted. Identified are changes of total knee arthroplasty with femoral and tibial components appearing well seated. Postsurgical soft tissue changes are noted. Alignment is anatomic.
[2019-08-29] MEDS ORDERED: ROPIVACAINE 0.2%-NS ON-Q PUMP 1,090 MG, EMPTY PAIN BALL 1 EACH MISCELLANE PRN (15:26)
[2019-08-29] MEDS: HYDROmorphone 0.5 MG/0.5 ML SYRINGE IVP PRN ×2 (16:03→16:23)
[2019-08-29] MEDS: HYDROcodone/APAP 7.5-325MG 1 EACH TAB PO PRN (18:06)
[2019-08-29] MEDS ORDERED: SENNOSIDES-DOCUSATE SODIUM 1 EACH TAB PO SCH (21:00)
[2019-08-29] MEDS: ASPIRIN 81 MG PO SCH (21:30)
[2019-08-29] MEDS: ceFAZolin 3 GM in SODIUM CHLORIDE 0.9% 100 ML IVPB SCH (21:30)
[2019-08-30 02:20] VITALS: RESP 18
[2019-08-30] MEDS: ceFAZolin 3 GM in SODIUM CHLORIDE 0.9% 100 ML IVPB SCH (04:50)
[2019-08-30] MEDS: LACTATED RINGERS 1,000 ML IV SCH (04:50)
[2019-08-30] MEDS: HYDROcodone/APAP 7.5-325MG 1 EACH TAB PO PRN ×2 (06:11→11:22)
--- NOTE | 2019-08-30 06:27 | P.ANPRN ---
Procedure Note - Anesthesia - Nerve Block Performed Right Adductor Canal Infusion Time Out Performed: Yes Date of Procedure: 08/29/19 Procedure Start Time: 11:48 Procedure Stop Time: 11:59 Location of Patient: PreOp Indication: Acute Post-Operative Pain, Requested by Surgeon Sedation Type: Sedate with meaningful contact maintained Preparation: Sterile Prep, Sterile Dressing Position: Supine Catheter: Indwelling Needle Types: Pajunk Needle Gauge: 21 Ultrasound used to visualize needle placement: Yes Ultrasound used to observe medication spread: Yes Blood Aspirated: No Pain Paresthesia on Injection Noted: No Resistance on Injection: Normal Image Stored and Saved: Yes Events: Uneventful and Well Tolerated (Ropivacaine 0.5% 20 mL plus dexamethasone 4 mg)
[2019-08-30] MEDS: ASPIRIN 81 MG PO SCH (06:45)
[2019-08-30 07:57] VITALS: BP 146/86; PULSE 79; TEMP 98.4
[2019-08-30 07:58] LABS: Basophils % (A) 0 %; Eosinophils # (A) 0.1 k/uL (0-0.7); Eosinophils % (A) 0 %; HCT 39.7 % (39.0-53.0); HGB 12.7 gm/dL (13.0-17.5); Lymphocytes # (A) 1.3 k/uL (1.0-4.8); Lymphocytes % (A) 8 %; MCH 31.5 pg (25.0-35.0); MCHC 31.9 g/dL (31.0-37.0); MCV 98.6 fL (80.0-100.0); Monocytes # (A) 0.8 k/uL (0-1.0); Monocytes % (A) 5 %; Neutrophils # (A) 13.8 k/uL (1.3-7.7); Neutrophils % (A) 85 %; Platelet Count 231 k/uL (150-450); RBC 4.03 m/uL (4.30-5.90); RDW 12.6 % (11.5-15.5); WBC 16.2 k/uL (3.8-10.6)
[2019-08-30] MEDS ORDERED: MELOXICAM 7.5 MG TAB PO SCH (09:00)
--- NOTE | 2019-08-30 11:01 | P.DS ---
Providers Expected date of discharge: 08/30/19 Attending physician: Manny Contreras Primary care physician: Kylah Curtisbal - Discharge Diagnosis(es) (1) Osteoarthritis of right knee Current Visit: Yes Status: Acute (2) S/P total knee arthroplasty Current Visit: Yes Status: Acute Hospital Course: This is a 64-year-old male who was last seen with complaint of continued right knee pain. The patient has a known history of degenerative arthritis of the right knee and presents to discuss surgical options. After discussion and consideration the patient elects to proceed with total right knee arthroplasty. The patient is seen preoperatively by Dr. Montero and cleared for surgery. The patient is admitted to [facility] for total right knee arthroplasty. The procedures performed without complication or sequelae. Patient is doing well postoperatively. Vital signs are stable at discharge. Labs are stable at discharge. the patient is ambulating well with walker with minimal assistance. The patient is discharged to home on postop day #1. Please see orders and [place] [facility] [place]. Plan - Discharge Summary Discharge Rx Participant: No New Discharge Prescriptions: New Aspirin [Adult Low Dose Aspirin EC] 81 mg PO BID #60 tablet. Meloxicam [Mobic] 1 - 2 tab PO DAILY PRN #30 tab PRN Reason: Pain HYDROcodone/APAP 10-325MG [[place] 10-325] 1 - 2 tab PO Q4-6H PRN #50 tab PRN Reason: Pain Sennosides-Docusate Sodium [Senokot-S] 1 tab PO BID #60 tablet No Action Diclofenac Sodium Gel [Voltaren Gel] 4 gm TOPICAL QID Water Pill 1 tab PO DIRECTED PRN PRN Reason: edema Indomethacin [Indocin] 50 mg PO Q8HR PRN PRN Reason: Pain Rosuvastatin Calcium 5 mg PO DAILY Fluticasone/Umeclidin/Vilanter [Trelegy Ellipta 100-62.5-25] 100 inhalation INHALATION DAILY Triamterene/Hydrochlorothiazid [Triamterene-Hctz 37.5-25 mg Tb] 37.5 mg PO DAILY HYDROcodone/APAP 10-325MG [[place] 10-325] 10 mg PO Q8HR PRN PRN Reason: Pain Carvedilol [Coreg] 3.125 mg PO BID Aspirin [Adult Low Dose Aspirin EC] 81 mg PO DAILY Albuterol Sulfate [Ventolin HFA] 1 - 2 puff INHALATION Q6H PRN PRN Reason: Shortness Of Breath Umeclidinium [place] [Incruse Ellipta] 62.5 mcg INHALATION DAILY Discharge Medication List Diclofenac Sodium Gel [Voltaren Gel] 4 gm TOPICAL QID 08/24/19 [History] Water Pill 1 tab PO DIRECTED PRN 08/24/19 [History] Albuterol Sulfate [Ventolin HFA] 1 - 2 puff INHALATION Q6H PRN 08/29/19 [History] Aspirin [Adult Low Dose Aspirin EC] 81 mg PO BID #60 tablet. 08/29/19 [Rx] Aspirin [Adult Low Dose Aspirin EC] 81 mg PO DAILY 08/29/19 [History] Carvedilol [Coreg] 3.125 mg PO BID 08/29/19 [History] Fluticasone/Umeclidin/Vilanter [Trelegy Ellipta 100-62.5-25] 100 inhalation INHALATION DAILY 08/29/19 [History] HYDROcodone/APAP 10-325MG [[place] 10-325] 1 - 2 tab PO Q4-6H PRN #50 tab 08/29/19 [Rx] HYDROcodone/APAP 10-325MG [[place] 10-325] 10 mg PO Q8HR PRN 08/29/19 [History] Indomethacin [Indocin] 50 mg PO Q8HR PRN 08/29/19 [History] Meloxicam [Mobic] 1 - 2 tab PO DAILY PRN #30 tab 08/29/19 [Rx] Rosuvastatin Calcium 5 mg PO DAILY 08/29/19 [History] Sennosides-Docusate Sodium [Senokot-S] 1 tab PO BID #60 tablet 08/29/19 [Rx] Triamterene/Hydrochlorothiazid [Triamterene-Hctz 37.5-25 mg Tb] 37.5 mg PO DAILY 08/29/19 [History] Umeclidinium [place] [Incruse Ellipta] 62.5 mcg INHALATION DAILY 08/29/19 [History] Follow up Appointment(s)/Referral(s): Viry Urbano PAC [PHYSICIAN BIOMETRICS INSTRUCTOR] - 09/09/19 10:20 am Cecilio Montero MD [Primary Care Provider] - 09/05/19 10:40 am [facility] [NON-STAFF] - As Needed (walker) [facility], [NON-STAFF] - As Needed Patient Instructions/Handouts: *Surgery [facility] - Knee Arthroscopy Home Instructions Activity/Diet/Wound Care/Special Instructions: May d/c tonight if doing well. May bear wt as tolerated w walker. May shower. Keep Optifoam dressing intact. Discharge Disposition: HOME WITH HOME HEALTH SERVICES
== END 2019-08-30 12:35 | disposition home health service (06) ==
LOC: OR 10:35 → 4SSUR 14:40 → OR 08-30 12:35
PROVIDERS: ATTEND Orthopaedic Surgery
DX: M17.11 Unilateral primary osteoarthritis, right knee (principal); M21.161 Varus deformity, not elsewhere classified, right knee; J45.909 Unspecified asthma, uncomplicated; I10 Essential (primary) hypertension; I25.2 Old myocardial infarction; I25.10 Atherosclerotic heart disease of native coronary artery without angina pectoris; E78.2 Mixed hyperlipidemia; E66.01 Morbid (severe) obesity due to excess calories; Z85.828 Personal history of other malignant neoplasm of skin; Z95.5 Presence of coronary angioplasty implant and graft; Z87.891 Personal history of nicotine dependence; Z79.899 Other long term (current) drug therapy; Z79.51 Long term (current) use of inhaled steroids; Z79.82 Long term (current) use of aspirin; Z68.41 Body mass index [BMI] 40.0-44.9, adult
CPT/HCPCS: 27447; 97110; 97161; 64448; 76942; 85025; 73560; C1713; C1776; J2250; J0171; J1100; J0690 ×3; J2405; J3010; J1885; J2795 ×2; J2370; J2704; J0735; J1170; 88300

== ENCOUNTER 2019-09-05 13:46 | Observation (INO) | payer OTHER ==
[2019-09-05] MEDS ORDERED: MORPHINE SULFATE 4 MG/ML SYRINGE IM STA ×2 (14:48→15:54)
--- NOTE | 2019-09-05 15:29 | ED ---
General Adult HPI - General Chief complaint: Extremity Injury, Lower Stated complaint: Rt leg pain; Surgery 08/28 Time Seen by Provider: 09/05/19 14:19 Source: patient, RN notes reviewed, old records reviewed Mode of arrival: wheelchair Limitations: physical limitation - History of Present Illness Initial comments: 64-year-old male patient presents to the chief complaint of right lower extremity pain. Patient reports that he had a total knee replacement done [address] Contreras. He reports that since then he has been having pain in the right lower extremity. Also reports that he is swelling the right lower extremity. Denies any other areas of pain. Denies any falls or trauma. Denies any fevers or any other complaints. Systemic: Pt denies fatigue, fever/chills, rash. Pt denies weakness, night sweats, weight loss. Neuro: Pt denies headache, visual disturbances, syncope or pre-syncope. HEENT: Pt denies ocular discharge or irritation, otalgia, rhinorrhea, pharyngitis or notable lymphadenopathy. Cardiopulmonary: Pt denies chest pain, SOB, heart palpitations, dyspnea on exertion. Abdominal/GI: Pt denies abdominal pain, n/v/d. : Pt denies dysuria, burning w/ urination, frequency/urgency. Denies new onset urinary or bowel incontinence. Neuro: Pt denies new onset weakness, paresthesias. - Related Data Home Medications Medication Instructions Recorded Confirmed Albuterol Sulfate [Ventolin HFA] 2 puff INHALATION RT-Q6H PRN 08/29/19 09/05/19 Aspirin [Adult Low Dose Aspirin EC] 81 mg PO DAILY 08/29/19 09/05/19 Carvedilol [Coreg] 3.125 mg PO BID 08/29/19 09/05/19 Fluticasone/Umeclidin/Vilanter 1 puff INHALATION RT-DAILY 08/29/19 09/05/19 [Trelegy Ellipta 100-62.5-25] Rosuvastatin Calcium 5 mg PO DAILY 08/29/19 09/05/19 Triamterene/Hydrochlorothiazid 1 tab PO DAILY 08/29/19 09/05/19 [Triamterene-Hctz 37.5-25 mg Tb] Umeclidinium [place] [Incruse 1 puff INHALATION RT-DAILY 08/29/19 09/05/19 Ellipta] Fluticasone/Salmeterol 1 puff INHALATION RT-BID 09/05/19 09/05/19 [Fluticasone-Salmeterol 232-14] hydrOXYzine PAMOATE [Vistaril] 25 mg PO Q6H PRN 09/05/19 09/05/19 Previous Rx's Medication Instructions Recorded HYDROcodone/APAP 10-325MG [[place] 1 - 2 tab PO Q4-6H PRN #50 tab 08/29/19 10-325] Meloxicam [Mobic] 1 - 2 tab PO DAILY PRN #30 tab 08/29/19 Sennosides-Docusate Sodium 1 tab PO BID #60 tablet 08/29/19 [Senokot-S] Allergies Allergy/AdvReac Type Severity Reaction Status Date / Time No Known Allergies Allergy Verified 09/05/19 19:29 Review of Systems ROS Statement: Those systems with pertinent positive or pertinent negative responses have been documented in the HPI. ROS Other: All systems not noted in ROS Statement are negative. Past Medical History Past Medical History: Coronary Artery Disease (CAD), Myocardial Infarction ([place]) Additional Past Medical History / Comment(s): . History of Any Multi-Drug Resistant Organisms: None Reported Past Surgical History: Heart Catheterization With Stent, Joint Replacement Additional Past Surgical History / Comment(s): rt knee Past Anesthesia/Blood Transfusion Reactions: No Reported Reaction Past Psychological History: No Psychological Hx Reported Smoking Status: Never smoker Past Alcohol Use History: Rare Past Drug Use History: None Reported General Exam - General Exam Comments Initial Comments: Constitutional: NAD, AOX3, Pt has pleasant affect. HEENT: NC/AT, trachea midline, neck supple, no lymphadenopathy. Posterior pharynx non erythematous, without exudates. External ears appear normal, without discharge. Mucous membranes moist. Eyes PERRLA, EOM intact. There is no scleral icterus. No pallor noted. Cardiopulmonary: RRR, no murmurs, rubs or gallops, no JVD noted. Lungs CTAB in anterior and posterior veras. +1 right sided peripheral edema. Abdominal exam: Abdomen soft and non-distended. Abdomen non-tender to palpation in all 4 quadrants. Bowel sounds active in LLQ. No hepatosplenomegaly. No ecchymosis Neuro: CN II-XII grossly intact. No nuchal rigidity. No raccon eyes, no squires sign, no hemotympanum. No cervical spinal tenderness. MSK: Mild amount of erythema to right anterior knee, mild amount of warmth noted. There is soft tissue swelling on the right lower extremity. Tissue compartments are soft. Mild amount of right posterior calf tenderness, none left. Posterior tibialis and radial pulse +2 bilaterally. Sensation intact in upper and lower extremities. Limitations: physical limitation Course Vital Signs 09/05/19 09/05/19 13:51 18:50 Temperature 98.1 F 98.3 F Pulse Rate 83 77 Respiratory 18 20 Rate Blood Pressure 135/91 147/82 O2 Sat by Pulse 98 95 Oximetry Medical Decision Making - Medical Decision Making 64-year-old male patient who is one-week status post total knee replacement right side is been ED chief complaint of pain and swelling. Patient reports it has been ongoing since the surgery. Patient had an ultrasound earlier today however he is unable to tolerate the compressions therefore did not rule out a DVT. He is not having any other pain or any shortness of breath. Patient felt and are stable afebrile. Physical exam did display some erythema and warmth to the right knee. There is no purulent discharge noted. Laboratory investigations are unremarkable. Repeat ultrasound which patient tolerated display any sign of DVT. Plain film was negative. Knee prosthesis is in good position. Patient placed on vancomycin and Zosyn for possible postop infection. He'll be admitted to Dr. Colvin who accepts patient. Case discussed with Dr. Celestin. - Lab Data Result diagrams: 09/05/19 18:50 09/05/19 18:50 Lab Results 09/05/19 09/05/19 09/05/19 Range/Units 18:50 18:50 18:50 WBC 8.9 (3.8-10.6) k/uL RBC 4.32 (4.30-5.90) m/uL Hgb 13.4 (13.0-17.5) gm/dL Hct 42.1 (39.0-53.0) % MCV 97.5 (80.0-100.0) fL MCH 31.1 (25.0-35.0) pg MCHC 31.9 (31.0-37.0) g/dL RDW 13.0 (11.5-15.5) % Plt Count 351 (150-450) k/uL Neutrophils % 63 % Lymphocytes % 22 % Monocytes % 7 % Eosinophils % 4 % Basophils % 1 % Neutrophils # 5.6 (1.3-7.7) k/uL Lymphocytes # 1.9 (1.0-4.8) k/uL Monocytes # 0.6 (0-1.0) k/uL Eosinophils # 0.3 (0-0.7) k/uL Basophils # 0.1 (0-0.2) k/uL Sodium 136 L (137-145) mmol/L Potassium 3.8 (3.5-5.1) mmol/L Chloride 100 (98-107) mmol/L Carbon Dioxide 28 (22-30) mmol/L Anion Gap 8 mmol/L BUN 21 H (9-20) mg/dL Creatinine 1.16 (0.66-1.25) mg/dL Est GFR (CKD-EPI)AfAm 78 (>60 ml/min/1.73 sqM) Est GFR (CKD-EPI)NonAf 68 (>60 ml/min/1.73 sqM) Glucose 113 H (74-99) mg/dL Plasma Lactic Acid Amrit 1.2 (0.7-2.0) mmol/L Calcium 9.2 (8.4-10.2) mg/dL Total Bilirubin 0.7 (0.2-1.3) mg/dL AST 36 (17-59) U/L ALT 24 (4-49) U/L Alkaline Phosphatase 58 (38-126) U/L Total Protein 7.6 (6.3-8.2) g/dL Albumin 4.2 (3.5-5.0) g/dL Disposition Clinical Impression: Post-operative complication Disposition: ADMITTED IP TO THIS [facility] Condition: Serious Is patient prescribed a controlled substance at d/c from ED?: No Referrals: Cecilio Montero MD [Primary Care Provider] - 1-2 days
--- NOTE | 2019-09-05 17:03 | US ---
EXAMINATION TYPE: US venous doppler duplex LE RT DATE OF EXAM: 09/05/2019 4:49 PM COMPARISON: NONE CLINICAL HISTORY: pain s/p tka 1 wk ago. pain and swelling in right leg, no h/o dvt SIDE PERFORMED: right TECHNIQUE: The lower extremity deep venous system is examined utilizing real time linear array sonog kathrin with graded compression, doppler sonography and color-flow sonography. VESSELS IMAGED: External Iliac Vein (EIV) Common Femoral Vein Deep Femoral Vein Greater Saphenous Vein * Femoral Vein Popliteal Vein Small Saphenous Vein * Proximal Calf Veins (* superficial vessels) *repeat study from earlier today, patient could not tolerate any pressure during first exam making ex am limited* Right Leg: Negative for DVT IMPRESSION: Normal exam. No sign of right leg deep vein thrombosis.
[2019-09-05] MEDS ORDERED: PIPERACILLIN-TAZOBACTAM 3.375 GM in SODIUM CHLORIDE 0.9% 100 ML IVPB STA (17:19)
[2019-09-05] MEDS ORDERED: VANCOMYCIN IV PER PHARMACY 1 EACH MISC MISCELLANE PRN (17:36)
[2019-09-05] MEDS ORDERED: VANCOMYCIN 2,000 MG in SODIUM CHLORIDE 0.9% 500 ML 500 ML IVPB ONE (17:45)
--- NOTE | 2019-09-05 17:59 | XR ---
EXAMINATION TYPE: XR knee complete RT DATE OF EXAM: 09/05/2019 COMPARISON: 08/29/2019 HISTORY: Pain TECHNIQUE: 3 views FINDINGS: There is right knee prosthesis. Components appear in anatomic position. There is no signifi cant joint fluid. I see no fracture nor dislocation. IMPRESSION: Knee prosthesis appears in good position. No complicating process seen. No adverse change .
[2019-09-05 19:01] LABS: Basophils # (A) 0.1 k/uL (0-0.2); Basophils % (A) 1 %; Eosinophils # (A) 0.3 k/uL (0-0.7); Eosinophils % (A) 4 %; HCT 42.1 % (39.0-53.0); HGB 13.4 gm/dL (13.0-17.5); Lymphocytes # (A) 1.9 k/uL (1.0-4.8); Lymphocytes % (A) 22 %; MCH 31.1 pg (25.0-35.0); MCHC 31.9 g/dL (31.0-37.0); MCV 97.5 fL (80.0-100.0); Mean Platelet Volume 7.2; Monocytes # (A) 0.6 k/uL (0-1.0); Monocytes % (A) 7 %; Neutrophils # (A) 5.6 k/uL (1.3-7.7); Neutrophils % (A) 63 %; Platelet Count 351 k/uL (150-450); RBC 4.32 m/uL (4.30-5.90); WBC 8.9 k/uL (3.8-10.6)
[2019-09-05 19:14] LABS: Albumin 4.2 g/dL (3.5-5.0); Calcium 9.2 mg/dL (8.4-10.2); Potassium 3.8 mmol/L (3.5-5.1); Total Bilirubin 0.7 mg/dL (0.2-1.3); Total Protein 7.6 g/dL (6.3-8.2)
[2019-09-05] MEDS ORDERED: NALOXONE 0.4 MG/ML 1 ML VIAL IV PRN (19:43)
[2019-09-05] MEDS ORDERED: ACETAMINOPHEN TAB 325 MG TAB PO PRN (19:43)
[2019-09-05] MEDS ORDERED: ALBUTEROL NEBULIZED 2.5 MG/3 ML INHALATION PRN (20:25)
[2019-09-05] MEDS ORDERED: ATORVASTATIN 10 MG TAB PO SCH (21:00)
[2019-09-05] MEDS: carvediloL 3.125 MG TAB PO SCH (21:46)
[2019-09-05] MEDS: MORPHINE SULFATE 4 MG/ML SYRINGE IV PRN (21:46)
[2019-09-06] MEDS: PIPERACILLIN-TAZOBACTAM 3.375 GM in SODIUM CHLORIDE 0.9% 100 ML IVPB SCH ×2 (00:26→08:53)
[2019-09-06] MEDS: MORPHINE SULFATE 4 MG/ML SYRINGE IV PRN ×2 (03:11→09:04)
[2019-09-06] MEDS: IPRATROPIUM 0.5 MG/2.5 ML NEBU INHALATION SCH ×2 (07:36→11:26)
[2019-09-06] MEDS ORDERED: SYMBICORT 80-4.5 MCG INHALER INHALATION SCH (08:00)
[2019-09-06] MEDS ORDERED: SALMETEROL INHALATION SCH (08:00)
[2019-09-06] MEDS ORDERED: FLUTICASONE INHALATION SCH (08:00)
[2019-09-06 08:46] VITALS: BP 132/66; RESP 16; TEMP 98.2
[2019-09-06] MEDS: carvediloL 3.125 MG TAB PO SCH (08:53)
[2019-09-06] MEDS ORDERED: TRIAMTERENE-HCTZ 37.5-25MG 1 EACH TAB PO SCH (09:00)
[2019-09-06] MEDS ORDERED: ASPIRIN 81 MG PO SCH (09:00)
--- NOTE | 2019-09-06 10:36 | P.HPOR ---
History of Present Illness H&P Date: 09/06/19 Chief Complaint: right leg pain and swelling this is a 62-year-old male who is 1 week status post total right knee arthroplasty. He called the office yesterday with complaint of increased pain and swelling. He was sent for a Doppler which was negative but the test was limited secondary to his intolerance to the test. He called the office quite agitated stating that he is in severe pain. He was sent to the emergency department and repeat Doppler was obtained. He was able to tolerate a complete Doppler which was negative. Labs were done which show no evidence of infection. His white count is normal. He has had no fever or chills. He was noted to have increased swelling. He was admitted to observation. Past Medical History Past Medical History: Coronary Artery Disease (CAD), Myocardial Infarction ([place]) Additional Past Medical History / Comment(s): . Last Myocardial Infarction Date:: 2013 History of Any Multi-Drug Resistant Organisms: None Reported Past Surgical History: Heart Catheterization With Stent, Joint Replacement Additional Past Surgical History / Comment(s): rt knee Past Anesthesia/Blood Transfusion Reactions: No Reported Reaction Date of Last Stent Placement:: 2013 Past Psychological History: No Psychological Hx Reported Smoking Status: Former smoker Past Alcohol Use History: Rare Past Drug Use History: None Reported - Past Family History Mother Family Medical History: Cancer Father History Unknown: Yes Brother(s) Family Medical History: Coronary Artery Disease (CAD), Myocardial Infarction ([place]) Sister(s) Family Medical History: No Reported History Son(s) Family Medical History: No Reported History Daughter(s) History Unknown: Yes Medications and Allergies Home Medications Medication Instructions Recorded Confirmed Type Albuterol Sulfate [Ventolin HFA] 2 puff INHALATION RT-Q6H PRN 08/29/19 09/05/19 History Aspirin [Adult Low Dose Aspirin EC] 81 mg PO DAILY 08/29/19 09/05/19 History Carvedilol [Coreg] 3.125 mg PO BID 08/29/19 09/05/19 History Fluticasone/Umeclidin/Vilanter 1 puff INHALATION RT-DAILY 08/29/19 09/05/19 History [Trelegy Ellipta 100-62.5-25] HYDROcodone/APAP 10-325MG [[place] 1 - 2 tab PO Q4-6H PRN #50 tab 08/29/1909/04/2 0 Rx 10-325] Meloxicam [Mobic] 1 - 2 tab PO DAILY PRN #30 tab 08/29/19 09/05/19 Rx Rosuvastatin Calcium 5 mg PO HS 08/29/19 09/05/19 History Sennosides-Docusate Sodium 1 tab PO BID #60 tablet 08/29/19 09/05/19 Rx [Senokot-S] Triamterene/Hydrochlorothiazid 1 tab PO DAILY 08/29/19 09/05/19 History [Triamterene-Hctz 37.5-25 mg Tb] Umeclidinium [place] [Incruse 1 puff INHALATION RT-DAILY 08/29/19 09/05/19 History Ellipta] Fluticasone/Salmeterol 1 puff INHALATION RT-BID 09/05/19 09/05/19 History [Fluticasone-Salmeterol 232-14] hydrOXYzine PAMOATE [Vistaril] 25 mg PO Q6H PRN 09/05/19 09/05/19 History Allergies Allergy/AdvReac Type Severity Reaction Status Date / Time No Known Allergies Allergy Verified 09/05/19 20:48 Physical Examination this is a 64-year-old male in no acute distress. He is alert and oriented 3. Exam of the lower extremities reveals swelling to the leg from the knee down to the foot. There is 1+ pitting edema noted. His postoperative dressing is clean, dry and intact. There is no drainage. He has limited motion of the knee secondary to pain and swelling. He has full foot and ankle motion without difficulty. Neurovascular status to the lower extremity is intact. Results x-rays taken of the right knee reveal components in good position and alignment. There are no fractures noted. Venous Doppler is negative for DVT. - Labs Labs: Abnormal Lab Results - Last 24 Hours (Table) 09/05/19 09/05/19 09/05/19 Range/Units 18:50 18:50 19:19 ESR 43 H (0-15) mm/hr Sodium 136 L (137-145) mmol/L BUN 21 H (9-20) mg/dL Glucose 113 H (74-99) mg/dL C-Reactive Protein 26.7 H (<10.0) mg/L H & H 09/05/19 Range/Units 18:50 Hgb 13.4 (13.0-17.5) gm/dL Hct 42.1 (39.0-53.0) % Result Diagrams: 09/05/19 18:50 09/05/19 18:50 Assessment and Plan (1) Edema of right lower extremity Current Visit: Yes Status: Acute Code(s): R60.0 - LOCALIZED EDEMA SNOMED Code(s): 097249447 (2) Osteoarthritis of right knee Current Visit: No Status: Acute Code(s): M17.11 - UNILATERAL PRIMARY OSTEOARTHRITIS, RIGHT KNEE SNOMED Code(s): 423994998372435 (3) S/P total knee arthroplasty Current Visit: No Status: Acute Code(s): Z96.659 - PRESENCE OF UNSPECIFIED ARTIFICIAL KNEE JOINT SNOMED Code(s): 7358859009745 Plan: the clinical and radiographic findings are discussed the patient. A compressive Sean wrap is based to the leg from the foot up to the thigh. He is encouraged to ice and elevate the extremity. He may be discharged to home today on his previous home medications. He is to follow-up on this week. He is to keep the compressive dressing in place until follow-up visit.
--- NOTE | 2019-09-06 10:38 | P.DS ---
Providers Date of admission: 09/05/19 19:56 Expected date of discharge: 09/06/19 Attending physician: Robby Colvin Primary care physician: Kylah Hernandes - Discharge Diagnosis(es) (1) Edema of right lower extremity Current Visit: Yes Status: Acute (2) Osteoarthritis of right knee Current Visit: No Status: Acute (3) S/P total knee arthroplasty Current Visit: No Status: Acute Hospital Course: This is a 62-year-old male who is 1 week status post total right knee arthroplasty. He called the office yesterday with complaint of increased pain and swelling. He was sent for a Doppler which was negative but the test was limited secondary to his intolerance to the test. He called the office quite agitated stating that he is in severe pain. He was sent to the emergency department and repeat Doppler was obtained. He was able to tolerate a complete Doppler which was negative. Labs were done which show no evidence of infection. His white count is normal. He has had no fever or chills. He was noted to have increased swelling. He was admitted to observation. there is no sign of infection on exam. He is placed in a compressive Sean bandage from his foot to his thigh. He may be discharged to home. He is to leave the Sean wrap in place until follow-up visit on . He is to continue his normal home medications. Patient Condition at Discharge: Stable Plan - Discharge Summary Discharge Rx Participant: No New Discharge Prescriptions: No Action Rosuvastatin Calcium 5 mg PO HS Fluticasone/Umeclidin/Vilanter [Trelegy Ellipta 100-62.5-25] 1 puff INHALATION RT-DAILY Triamterene/Hydrochlorothiazid [Triamterene-Hctz 37.5-25 mg Tb] 1 tab PO DAILY Carvedilol [Coreg] 3.125 mg PO BID Aspirin [Adult Low Dose Aspirin EC] 81 mg PO DAILY Albuterol Sulfate [Ventolin HFA] 2 puff INHALATION RT-Q6H PRN PRN Reason: Shortness Of Breath Umeclidinium [place] [Incruse Ellipta] 1 puff INHALATION RT-DAILY Meloxicam [Mobic] 1 - 2 tab PO DAILY PRN #30 tab PRN Reason: Pain HYDROcodone/APAP 10-325MG [[place] 10-325] 1 - 2 tab PO Q4-6H PRN #50 tab PRN Reason: Pain Sennosides-Docusate Sodium [Senokot-S] 1 tab PO BID #60 tablet hydrOXYzine PAMOATE [Vistaril] 25 mg PO Q6H PRN PRN Reason: Pain Fluticasone/Salmeterol [Fluticasone-Salmeterol 232-14] 1 puff INHALATION RT- BID Discharge Medication List Albuterol Sulfate [Ventolin HFA] 2 puff INHALATION RT-Q6H PRN 08/29/19 [History] Aspirin [Adult Low Dose Aspirin EC] 81 mg PO DAILY 08/29/19 [History] Carvedilol [Coreg] 3.125 mg PO BID 08/29/19 [History] Fluticasone/Umeclidin/Vilanter [Trelegy Ellipta 100-62.5-25] 1 puff INHALATION RT-DAILY 08/29/19 [History] HYDROcodone/APAP 10-325MG [[place] 10-325] 1 - 2 tab PO Q4-6H PRN #50 tab 08/29/19 [Rx] Meloxicam [Mobic] 1 - 2 tab PO DAILY PRN #30 tab 08/29/19 [Rx] Rosuvastatin Calcium 5 mg PO HS 08/29/19 [History] Sennosides-Docusate Sodium [Senokot-S] 1 tab PO BID #60 tablet 08/29/19 [Rx] Triamterene/Hydrochlorothiazid [Triamterene-Hctz 37.5-25 mg Tb] 1 tab PO DAILY 08/29/19 [History] Umeclidinium [place] [Incruse Ellipta] 1 puff INHALATION RT-DAILY 08/29/19 [History] Fluticasone/Salmeterol [Fluticasone-Salmeterol 232-14] 1 puff INHALATION RT-BID 09/05/19 [History] hydrOXYzine PAMOATE [Vistaril] 25 mg PO Q6H PRN 09/05/19 [History] Follow up Appointment(s)/Referral(s): Cecilio Montero MD [Primary Care Provider] - 1-2 days Manny Contreras MD [STAFF PHYSICIAN] - 09/08/19 Activity/Diet/Wound Care/Special Instructions: keep leg wrapped until follow-up visit on . Ice and elevate the right lower extremity. Discharge Disposition: HOME WITH HOME HEALTH SERVICES
[2019-09-06 11:36] VITALS: PULSE 84
[2019-09-06] MEDS ORDERED: VANCOMYCIN 2,000 MG in SODIUM CHLORIDE 0.9% 500 ML 500 ML IVPB SCH (12:00)
== END 2019-09-06 14:56 | disposition home health service (06) ==
LOC: EC 13:46 → 1SOBS 19:56
PROVIDERS: ADMIT Orthopaedic Surgery; ATTEND Orthopaedic Surgery
DX: R60.0 Localized edema (principal); M79.89 Other specified soft tissue disorders; M17.11 Unilateral primary osteoarthritis, right knee; Z96.651 Presence of right artificial knee joint; I25.10 Atherosclerotic heart disease of native coronary artery without angina pectoris; I25.2 Old myocardial infarction; Z03.818 Encounter for observation for suspected exposure to other biological agents ruled out; Z79.899 Other long term (current) drug therapy; Z79.82 Long term (current) use of aspirin; Z79.51 Long term (current) use of inhaled steroids; Z95.5 Presence of coronary angioplasty implant and graft; Z87.891 Personal history of nicotine dependence; Z80.9 Family history of malignant neoplasm, unspecified; Z82.49 Family history of ischemic heart disease and other diseases of the circulatory system
CPT/HCPCS: 96366 ×2; 96375; 96376; 96365; 96367; 96372; 99285; 36415; 94640 ×2; 80053; 85652; 83605; 85025; 86140; 87040; 73562; 93971; G0378 ×2; U0003; J2543 ×2; J3370 ×2; J2270 ×2

== ENCOUNTER → 2019-09-05 | Outpatient (CLI) | payer OTHER ==
--- NOTE | 2019-09-05 12:30 | US ---
EXAMINATION TYPE: US venous doppler duplex LE RT DATE OF EXAM: 09/05/2019 12:06 PM COMPARISON: NONE CLINICAL HISTORY: I80.9 Phlabitis. Post op knee surgery x 1 week edema and pain SIDE PERFORMED: Right TECHNIQUE: The lower extremity deep venous system is examined utilizing real time linear array sonog kathrin with graded compression, doppler sonography and color-flow sonography. VESSELS IMAGED: External Iliac Vein (EIV) Common Femoral Vein Deep Femoral Vein Greater Saphenous Vein * Femoral Vein Popliteal Vein Small Saphenous Vein * Proximal Calf Veins (* superficial vessels) Patient unable to tolerate compressions. Right Leg: The common femoral vein shows some color flow. Questionable area within the common femoral vein does not show color flow or complete compression. IMPRESSION: Difficult to exclude deep venous thrombosis due to patient's inability to tolerate compre ssions. Exam is limited.
== END | disposition home or self-care (01) ==
LOC: RADUSWWP 11:50
PROVIDERS: ATTEND Orthopaedic Surgery
DX: M25.561 Pain in right knee (principal); M17.11 Unilateral primary osteoarthritis, right knee; Z85.828 Personal history of other malignant neoplasm of skin; Z87.891 Personal history of nicotine dependence; I80.9 Phlebitis and thrombophlebitis of unspecified site; Z96.651 Presence of right artificial knee joint

== ENCOUNTER 2019-09-13 13:27 | Inpatient (IN) | payer OTHER ==
[2019-09-13] MEDS ORDERED: HEPARIN SODIUM,PORCINE 10,000 UNIT/ML 1 ML VIAL IV ONE (13:51)
[2019-09-13] MEDS ORDERED: HEPARIN SODIUM,PORCINE 5,000 UNIT/ML 1 ML VIAL IV PRN (13:51)
--- NOTE | 2019-09-13 13:54 | ED ---
General Adult HPI - General Chief complaint: Shortness of Breath Stated complaint: blood clots in chest Time Seen by Provider: 09/13/19 13:44 Source: patient, RN notes reviewed Mode of arrival: wheelchair Limitations: no limitations - History of Present Illness Initial comments: Patient is a pleasant 64-year-old male presenting to the emergency department from computed tomography scan. Patient had right knee replacement done [address] Contreras. Patient has chronic shortness of breath however this has somewhat increased over the past week or so. Patient was sent for outpatient computed tomography scan and diagnosed with right lower lobe pulmonary embolism. Patient denies any chest discomfort. Patient states there is right leg swellin g and right leg discomfort. Patient did have fluid removed from right knee in the office today. No fevers. - Related Data Home Medications Medication Instructions Recorded Confirmed Albuterol Sulfate [Ventolin HFA] 2 puff INHALATION RT-Q6H PRN 08/29/19 09/05/19 Aspirin [Adult Low Dose Aspirin EC] 81 mg PO DAILY 08/29/19 09/05/19 Fluticasone/Umeclidin/Vilanter 1 puff INHALATION RT-DAILY 08/29/19 09/05/19 [Trelegy Ellipta 100-62.5-25] Rosuvastatin Calcium 5 mg PO HS 08/29/19 09/05/19 Triamterene/Hydrochlorothiazid 1 tab PO DAILY 08/29/19 09/05/19 [Triamterene-Hctz 37.5-25 mg Tb] Umeclidinium [place] [Incruse 1 puff INHALATION RT-DAILY 08/29/19 09/05/19 Ellipta] carvediloL [Coreg] 3.125 mg PO BID 08/29/19 09/05/19 Fluticasone/Salmeterol 1 puff INHALATION RT-BID 09/05/19 09/05/19 [Fluticasone-Salmeterol 232-14] hydrOXYzine pamoate [Vistaril] 25 mg PO Q6H PRN 09/05/19 09/05/19 Previous Rx's Medication Instructions Recorded HYDROcodone/APAP 10-325MG [[place] 1 - 2 tab PO Q4-6H PRN #50 tab 08/29/19 10-325] Meloxicam [Mobic] 1 - 2 tab PO DAILY PRN #30 tab 08/29/19 Sennosides-Docusate Sodium 1 tab PO BID #60 tablet 08/29/19 [Senokot-S] Allergies Allergy/AdvReac Type Severity Reaction Status Date / Time No Known Allergies Allergy Verified 09/13/19 13:38 Review of Systems ROS Statement: Those systems with pertinent positive or pertinent negative responses have been documented in the HPI. ROS Other: All systems not noted in ROS Statement are negative. Constitutional: Denies: fever Eyes: Denies: eye pain ENT: Denies: ear pain Respiratory: Reports: dyspnea Cardiovascular: Denies: chest pain Endocrine: Denies: fatigue Gastrointestinal: Denies: abdominal pain Genitourinary: Denies: dysuria Musculoskeletal: Denies: back pain Skin: Denies: rash Neurological: Denies: weakness Past Medical History Past Medical History: Coronary Artery Disease (CAD), Myocardial Infarction ([place]) Additional Past Medical History / Comment(s): . Last Myocardial Infarction Date:: 2013 History of Any Multi-Drug Resistant Organisms: None Reported Past Surgical History: Heart Catheterization With Stent, Joint Replacement Additional Past Surgical History / Comment(s): rt knee Past Anesthesia/Blood Transfusion Reactions: No Reported Reaction Date of Last Stent Placement:: 2013 Past Psychological History: No Psychological Hx Reported Smoking Status: Former smoker Past Alcohol Use History: Rare Past Drug Use History: None Reported - Past Family History Mother Family Medical History: Cancer Sister(s) Family Medical History: Cancer Father History Unknown: Yes Brother(s) Family Medical History: Coronary Artery Disease (CAD), Myocardial Infarction ([place]) Son(s) Family Medical History: No Reported History Daughter(s) History Unknown: Yes General Exam Limitations: no limitations General appearance: alert, in no apparent distress Head exam: Present: normocephalic Eye exam: Present: normal appearance Neck exam: Present: normal inspection Respiratory exam: Present: normal lung sounds bilaterally. Absent: chest wall tenderness Cardiovascular Exam: Present: regular rate, normal rhythm Expanded Peripheral pulses: 2+: Posterior Tibialis (R), Dorsalis Pedis (R) GI/Abdominal exam: Present: soft. Absent: tenderness Extremities exam: Present: calf tenderness, other (Right leg swelling with calf tenderness) Back exam: Present: normal inspection Neurological exam: Present: alert Psychiatric exam: Present: normal affect, normal mood Skin exam: Present: normal color Course Vital Signs 09/13/19 13:34 Temperature 98.5 F Pulse Rate 82 Respiratory 20 Rate Blood Pressure 138/85 O2 Sat by Pulse 97 Oximetry - Reevaluation(s) Reevaluation #1: 09/13/19 13:54 Heparin ordered. Patient is updated EKG Findings - EKG Comments: EKG Findings:: Normal sinus rhythm 89. MI 178. QRS 84. QT 360. QTC 4:30. Normal axis. Normal QRS. No acute ST change. Medical Decision Making - Medical Decision Making Case was discussed with Dr. Parish, who will admit covering for Dr. Aponte. Heparin was started. Admission orders written. - Lab Data Result diagrams: 09/13/19 13:54 Lab Results 09/13/19 Range/Units 13:54 WBC 10.5 (3.8-10.6) k/uL RBC 4.30 (4.30-5.90) m/uL Hgb 13.4 (13.0-17.5) gm/dL Hct 41.9 (39.0-53.0) % MCV 97.4 (80.0-100.0) fL MCH 31.1 (25.0-35.0) pg MCHC 31.9 (31.0-37.0) g/dL RDW 13.0 (11.5-15.5) % Plt Count 365 (150-450) k/uL Neutrophils % 70 % Lymphocytes % 18 % Monocytes % 6 % Eosinophils % 4 % Basophils % 1 % Neutrophils # 7.3 (1.3-7.7) k/uL Lymphocytes # 1.9 (1.0-4.8) k/uL Monocytes # 0.6 (0-1.0) k/uL Eosinophils # 0.4 (0-0.7) k/uL Basophils # 0.1 (0-0.2) k/uL Critical Care Time Critical Care Time: Yes Total Critical Care Time: 32 Disposition Clinical Impression: Pulmonary embolism Disposition: ADMITTED IP TO THIS HOSP Is patient prescribed a controlled substance at d/c from ED?: No Referrals: Cecilio Montero MD [Primary Care Provider] - 1-2 days Decision Time: 14:13
[2019-09-13 14:09] LABS: Basophils # (A) 0.1 k/uL (0-0.2); Basophils % (A) 1 %; Eosinophils # (A) 0.4 k/uL (0-0.7); Eosinophils % (A) 4 %; HCT 41.9 % (39.0-53.0); HGB 13.4 gm/dL (13.0-17.5); Lymphocytes # (A) 1.9 k/uL (1.0-4.8); Lymphocytes % (A) 18 %; MCH 31.1 pg (25.0-35.0); MCHC 31.9 g/dL (31.0-37.0); MCV 97.4 fL (80.0-100.0); Mean Platelet Volume 6.7; Monocytes # (A) 0.6 k/uL (0-1.0); Monocytes % (A) 6 %; Neutrophils # (A) 7.3 k/uL (1.3-7.7); Neutrophils % (A) 70 %; Platelet Count 365 k/uL (150-450); WBC 10.5 k/uL (3.8-10.6)
[2019-09-13] MEDS ORDERED: NALOXONE 0.4 MG/ML 1 ML VIAL IV PRN (14:13)
[2019-09-13 14:17] LABS: Albumin 4.3 g/dL (3.5-5.0); Calcium 9.2 mg/dL (8.4-10.2); Potassium 3.8 mmol/L (3.5-5.1); Total Bilirubin 0.8 mg/dL (0.2-1.3); Total Protein 7.9 g/dL (6.3-8.2)
[2019-09-13 14:22] LABS: INR 1.1 (<1.2); Partial Thromboplastin Time 24.6 sec (22.0-30.0); Prothrombin Time 10.8 sec (9.0-12.0)
[2019-09-13] MEDS: HEPARIN SOD,PORK IN 0.45% NACL 25,000 UNIT in 0.45% NACL 1 250ML.BAG IV SCH (14:37)
--- NOTE | 2019-09-13 14:46 | US ---
EXAMINATION TYPE: US venous doppler duplex LE RT DATE OF EXAM: 09/13/2019 2:32 PM COMPARISON: US 09/05/19 x2 CLINICAL HISTORY: Swelling, PE. S/P right knee replacement. C/O right foot swelling and pain. SIDE PERFORMED: Right TECHNIQUE: The lower extremity deep venous system is examined utilizing real time linear array sonog kathrin with graded compression, doppler sonography and color-flow sonography. VESSELS IMAGED: External Iliac Vein (EIV) Common Femoral Vein Deep Femoral Vein Greater Saphenous Vein * Femoral Vein Popliteal Vein Small Saphenous Vein * Proximal Calf Veins (* superficial vessels) Patient could not tolerate compressions in most places. Could not tolerate augmentation of calf. Good blood flow, and compressions seen in many areas, where tolerated. Right Leg: Negative for DVT IMPRESSION: No evidence for DVT.
[2019-09-13] MEDS: MORPHINE SULFATE 4 MG/ML SYRINGE IV PRN ×3 (15:09→23:03)
[2019-09-13] MEDS ORDERED: ALBUTEROL NEBULIZED 2.5 MG/3 ML INHALATION PRN (22:55)
[2019-09-13] MEDS ORDERED: hydrOXYzine pamoate 25 MG CAP PO PRN (22:55)
[2019-09-13] MEDS ORDERED: IPRATROPIUM-ALBUTEROL 3 ML NEB INHALATION PRN (22:56)
[2019-09-14] MEDS: HEPARIN SOD,PORK IN 0.45% NACL 25,000 UNIT in 0.45% NACL 1 250ML.BAG IV SCH ×2 (05:02→20:16)
[2019-09-14 06:17] LABS: Basophils # (A) 0.1 k/uL (0-0.2); Basophils % (A) 1 %; Eosinophils # (A) 0.3 k/uL (0-0.7); Eosinophils % (A) 4 %; HCT 37.7 % (39.0-53.0); Lymphocytes # (A) 2.2 k/uL (1.0-4.8); Lymphocytes % (A) 28 %; MCH 31.3 pg (25.0-35.0); MCV 98.1 fL (80.0-100.0); Mean Platelet Volume 6.9; Monocytes # (A) 0.5 k/uL (0-1.0); Monocytes % (A) 7 %; Neutrophils # (A) 4.4 k/uL (1.3-7.7); Neutrophils % (A) 57 %; Platelet Count 310 k/uL (150-450); RBC 3.84 m/uL (4.30-5.90); RDW 12.8 % (11.5-15.5); WBC 7.7 k/uL (3.8-10.6)
[2019-09-14 06:24] LABS: INR 1.1 (<1.2); Partial Thromboplastin Time 32.1 sec (22.0-30.0); Prothrombin Time 11.2 sec (9.0-12.0)
[2019-09-14 06:28] LABS: Calcium 8.7 mg/dL (8.4-10.2); Potassium 3.9 mmol/L (3.5-5.1)
[2019-09-14] MEDS: MORPHINE SULFATE 4 MG/ML SYRINGE IV PRN ×3 (08:23→22:54)
[2019-09-14] MEDS: SENNOSIDES-DOCUSATE SODIUM 1 EACH TAB PO SCH ×2 (08:23→20:53)
[2019-09-14] MEDS: carvediloL 3.125 MG TAB PO SCH ×2 (08:23→20:53)
[2019-09-14] MEDS: TRIAMTERENE-HCTZ 37.5-25MG 1 EACH TAB PO SCH (08:23)
[2019-09-14] MEDS: Fluticasone/Salmeterol [Fluticasone-Salmeterol 232-14] 1 PUFF INHALATION SCH ×2 (08:37→19:09)
--- NOTE | 2019-09-14 11:54 | P.HPIM ---
History of Present Illness H&P Date: 09/13/19 Chief Complaint: Shortness of breath Patient is 64-year-old male with a known history of coronary artery disease status post stent placement in 2013, recent right total knee replacement 2 weeks ago due to worsening shortness of breath. Patient presented initially presented to his orthopedic surgeons the office. She was found to have right knee swelling and leg swelling. Patient did have right knee aspiration done in the office. Patient has been having worsening shortness of breath for the past 1 week. Patient was sent to ER for computed tomography scan and diagnosed with right lower lobe pulmonary embolism. Patient is also complaining of right calf tenderness. Right lower extremity duplex scan is negative for DVT. Patient otherwise denied any complaints of fever or chills. No complaints of chest pain. No nausea vomiting or abdominal pain or diarrhea. Patient has been taking aspirin for anticoagulation after surgery. Review of Systems Constitutional: Patient denies any fever or chills . No generalized weakness or weight loss. Abdomen: Patient denied nausea vomiting and diarrhea and abdominal pain. Cardiovascular: Patient denies any chest pain or short of breath no palpitations. Respiratory: patient denied any cough or production. Does have shortness of breath Neurologic: Patient denied any numbness or tingling headache. Musculoskeletal: Patient denies any complaints of joint swelling or deformity. Right knee swelling Skin: Negative Psychiatric: Negative Endocrine: No heat or cold intolerance. No recent weight gain. Genitourinary: No dysuria or hematuria. All other 14 point ROS negative except the above Past Medical History Past Medical History: Coronary Artery Disease (CAD), Myocardial Infarction ([place]) Additional Past Medical History / Comment(s): . Last Myocardial Infarction Date:: 2013 History of Any Multi-Drug Resistant Organisms: None Reported Past Surgical History: Heart Catheterization With Stent, Joint Replacement Additional Past Surgical History / Comment(s): rt knee Past Anesthesia/Blood Transfusion Reactions: No Reported Reaction Date of Last Stent Placement:: 2013 Past Psychological History: No Psychological Hx Reported Smoking Status: Former smoker Past Alcohol Use History: Rare Past Drug Use History: None Reported - Past Family History Mother Family Medical History: Cancer Sister(s) Family Medical History: Cancer Father History Unknown: Yes Brother(s) Family Medical History: Coronary Artery Disease (CAD), Myocardial Infarction ([place]) Son(s) Family Medical History: No Reported History Daughter(s) History Unknown: Yes Medications and Allergies Home Medications Medication Instructions Recorded Confirmed Type Albuterol Sulfate [Ventolin HFA] 2 puff INHALATION RT-Q6H PRN 08/29/19 09/13/19 History Aspirin [Adult Low Dose Aspirin EC] 81 mg PO DAILY 08/29/19 09/13/19 History Fluticasone/Umeclidin/Vilanter 1 puff INHALATION RT-DAILY 08/29/19 09/13/19 History [Trelegy Ellipta 100-62.5-25] HYDROcodone/APAP 10-325MG [[place] 1 - 2 tab PO Q4-6H PRN #50 tab 08/29/19 09/13/19 Rx 10-325] Rosuvastatin Calcium 5 mg PO HS 08/29/19 09/13/19 History Sennosides-Docusate Sodium 1 tab PO BID #60 tablet 08/29/19 09/13/19 Rx [Senokot-S] Triamterene/Hydrochlorothiazid 1 tab PO DAILY 08/29/19 09/13/19 History [Triamterene-Hctz 37.5-25 mg Tb] Umeclidinium [place] [Incruse 1 puff INHALATION RT-DAILY 08/29/19 09/13/19 History Ellipta] carvediloL [Coreg] 3.125 mg PO BID 08/29/19 09/13/19 History Fluticasone/Salmeterol 1 puff INHALATION RT-BID 09/05/19 09/13/19 History [Fluticasone-Salmeterol 232-14] hydrOXYzine pamoate [Vistaril] 25 mg PO Q6H PRN 09/05/19 09/13/19 History Meloxicam [Mobic] 7.5 - 15 mg PO DAILY PRN 09/13/19 09/13/19 History Allergies Allergy/AdvReac Type Severity Reaction Status Date / Time No Known Allergies Allergy Verified 09/13/19 14:30 Physical Exam Vitals: Vital Signs Temp Pulse Pulse Resp BP BP Pulse Ox 09/13/19 18:29 98.0 F 93 18 140/98 95 09/13/19 18:19 98.0 F 89 20 140/98 95 09/13/19 15:14 89 18 133/89 97 07/28/20 13:34 98.5 F 82 20 138/85 97 Intake and Output 09/13/19 09/13/19 09/13/19 06:59 14:59 22:59 Intake Total 480 Output Total 625 Balance -145 Intake: IV 240 .9 @ 20 240 Oral 240 Output: Urine 625 Other: Voiding Method Toilet Urinal # Voids 2 # Bowel Movements 1 Weight 134.626 kg 134.626 kg PHYSICAL EXAMINATION: Patient is lying in the bed comfortably, no acute distress, awake alert and oriented.. HEENT: Normocephalic. Neck is supple. Pupils reactive. Nostrils clear. Oral cavity is moist. Ears reveal no drainage. Neck reveals no JVD, carotid bruits, or thyromegaly. CHEST EXAMINATION: Trachea is central. Symmetrical expansion. Bibasilar diminished air entry. Lung veras clear to auscultation and percussion. CARDIAC: Normal S1, S2 with no gallops. No murmurs ABDOMEN: Soft. Bowel sounds normal. No organomegaly. No abdominal bruits. Extremities: Right lower extremity 2+ edema. No clubbing or cyanosis Neurologically awake, alert, oriented x3 with well-coordinated movements. No focal deficits noted Skin: No rash or skin lesions. Psychiatric: Coperative. Nonsuicidal Musculoskeletal: Right knee and lower activity swelling. Physical site intact. Decreased range of motion. Results CBC & Chem 7: 09/14/19 05:35 09/14/19 05:35 Labs: Abnormal Lab Results - Last 24 Hours (Table) 09/13/19 Range/Units 13:54 Glucose 105 H (74-99) mg/dL Thrombosis Risk Factor Assmnt - DVT/VTE Prophylaxis DVT/VTE Prophylaxis: Pharmacologic Prophylaxis ordered - Choose All That Apply Any of the Below Risk Factors Present?: Yes Each Factor Represents 1 point: History of prior major surgery (<1month), Obesity (BMI >25), Swollen legs (current) Other Risk Factors: Yes Other congenital or acquired thrombophilia - If yes, enter type in comment: No Thrombosis Risk Factor Assessment Total Risk Factor Score: 3 Thrombosis Risk Factor Assessment Level: Moderate Risk Assessment and Plan Assessment: Acute right lower lobe pulmonary embolism with recent history of right total knee arthroplasty. Duplex scan negative for DVT. Recent right total knee arthroplasty 2 weeks ago Morbid obesity with BMI 41.4 Coronary artery disease with history of stent placement History of [place] Previous history of smoking DVT prophylaxis patient is already on full anticoagulation Plan: Patient will be continued on high intensity heparin drip. Continue the pain management and follow closely. Follow-up culture reports from the aspiration. Pulmonary and orthopedic surgery was consulted. We will follow up closely. Further recommendations based on the clinical was. Continue with home medications. Time with Patient: Greater than 30
--- NOTE | 2019-09-14 13:07 | P.CNOR ---
History of Present Illness - [facility] Consult date: 09/14/19 Consult reason: other (Follow-up right total knee replacement) History of present illness: This is a 64-year-old male who is approximately 2 weeks status post total right knee arthroplasty. The patient has had complaint of right lower extremity pain and swelling since surgery. He had an admission 1 week ago to rule out DVT. The first Doppler was inconclusive secondary to inability to completely exam due to pain. The second Doppler attempted was complete and was read as negative. The patient continued to have leg pain. He has recently developed shortness of breath. He was seen in our office yesterday and referred for a spiral CT scan of the chest to rule out PE. The tested show a right lower lobe pulmonary embolism. He is admitted to internal medicine and we are consulted fourth. Follow-up regarding his right knee. Past Medical History Past Medical History: Coronary Artery Disease (CAD), Myocardial Infarction ([place]) Additional Past Medical History / Comment(s): . Last Myocardial Infarction Date:: 2013 History of Any Multi-Drug Resistant Organisms: None Reported Past Surgical History: Heart Catheterization With Stent, Joint Replacement Additional Past Surgical History / Comment(s): rt knee Past Anesthesia/Blood Transfusion Reactions: No Reported Reaction Date of Last Stent Placement:: 2013 Past Psychological History: No Psychological Hx Reported Smoking Status: Former smoker Past Alcohol Use History: Rare Past Drug Use History: None Reported - Past Family History Mother Family Medical History: Cancer Sister(s) Family Medical History: Cancer Father History Unknown: Yes Brother(s) Family Medical History: Coronary Artery Disease (CAD), Myocardial Infarction ([place]) Son(s) Family Medical History: No Reported History Daughter(s) History Unknown: Yes Medications and Allergies Home Medications Medication Instructions Recorded Confirmed Type Albuterol Sulfate [Ventolin HFA] 2 puff INHALATION RT-Q6H PRN 08/29/19 09/13/19 History Aspirin [Adult Low Dose Aspirin EC] 81 mg PO DAILY 08/29/19 09/13/19 History Fluticasone/Umeclidin/Vilanter 1 puff INHALATION RT-DAILY 08/29/19 09/13/19 History [Trelegy Ellipta 100-62.5-25] HYDROcodone/APAP 10-325MG [[place] 1 - 2 tab PO Q4-6H PRN #50 tab 08/29/192 10/05 Rx 10-325] Rosuvastatin Calcium 5 mg PO HS 08/29/19 09/13/19 History Sennosides-Docusate Sodium 1 tab PO BID #60 tablet 08/29/19 09/13/19 Rx [Senokot-S] Triamterene/Hydrochlorothiazid 1 tab PO DAILY 08/29/19 09/13/19 History [Triamterene-Hctz 37.5-25 mg Tb] Umeclidinium [place] [Incruse 1 puff INHALATION RT-DAILY 08/29/19 09/13/19 History Ellipta] carvediloL [Coreg] 3.125 mg PO BID 08/29/19 09/13/19 History Fluticasone/Salmeterol 1 puff INHALATION RT-BID 09/05/19 09/13/19 History [Fluticasone-Salmeterol 232-14] hydrOXYzine pamoate [Vistaril] 25 mg PO Q6H PRN 09/05/19 09/13/19 History Meloxicam [Mobic] 7.5 - 15 mg PO DAILY PRN 09/13/19 09/13/19 History Rivaroxaban [Xarelto Starter Pack] 0 mg PO DIRECTED 30 Days #1 pack 09/14/19 Rx Allergies Allergy/AdvReac Type Severity Reaction Status Date / Time No Known Allergies Allergy Verified 09/13/19 14:30 Physical Examination This is a 64-year-old male in no acute distress. He is alert and oriented at this time. Exam of the right lower extremity reveals that his incision is well- healed. He has knee flexion to about 100. He is lacking about 5-10 of full extension. He has pain with foot and ankle motion. He is tender over the calf and anterior lower leg with palpation. Pedal pulses +1/4. Neurovascular status to the lower extremities grossly intact. Results Spiral CT scan of the chest reveals a right lower lobe pulmonary embolism. - Labs Labs: Abnormal Lab Results - Last 24 Hours (Table) 09/13/19 09/13/19 09/14/19 Range/Units 13:54 20:56 05:35 RBC 3.84 L (4.30-5.90) m/uL Hgb 12.0 L (13.0-17.5) gm/dL Hct 37.7 L (39.0-53.0) % APTT 58.3 H (22.0-30.0) sec Glucose 105 H (74-99) mg/dL 09/14/19 09/14/19 Range/Units 05:35 05:35 RBC (4.30-5.90) m/uL Hgb (13.0-17.5) gm/dL Hct (39.0-53.0) % APTT 32.1 H (22.0-30.0) sec Glucose 106 H (74-99) mg/dL H & H 09/13/19 09/14/19 Range/Units 13:54 05:35 Hgb 13.4 12.0 L (13.0-17.5) gm/dL Hct 41.9 37.7 L (39.0-53.0) % Coagulation 09/13/19 09/14/19 Range/Units 13:54 05:35 INR 1.1 1.1 (<1.2) Result Diagrams: 09/14/19 05:35 09/14/19 05:35 Assessment and Plan (1) Pulmonary embolism Current Visit: Yes Status: Acute Code(s): I26.99 - OTHER PULMONARY EMBOLISM WITHOUT ACUTE COR PULMONALE SNOMED Code(s): 12242591 (2) Edema of right lower extremity Current Visit: No Status: Acute Code(s): R60.0 - LOCALIZED EDEMA SNOMED Code(s): 251492541 (3) S/P total knee arthroplasty Current Visit: No Status: Acute Code(s): Z96.659 - PRESENCE OF UNSPECIFIED ARTIFICIAL KNEE JOINT SNOMED Code(s): 3358189544623 Plan: The clinical and radiographic findings are discussed the patient. He may be up with physical therapy when cleared with medicine and pulmonary/critical care. Continue current care.
--- NOTE | 2019-09-14 17:05 | CONS ---
CONSULTATION PULMONARY/CRITICAL CARE CONSULTATION: DATE OF SERVICE: 09/14/2019 REASON FOR CONSULTATION: Pulmonary embolism/shortness of breath. This is a 64-year-old gentleman who apparently was admitted through the emergency room on September 12. He came in with complaints of right knee swelling. He also had significant shortness of breath. For that reason, he was sent to the emergency room by his orthopedic surgeon. He had a right total knee arthroplasty done on [place] [address] Contreras. Since that time, the patient has had a couple of Dopplers of the right lower extremity, all of which have been either inconclusive or negative for PE. More recently, because of increasing shortness of breath and just not feeling well, he was sent in for a CT angiogram which did in fact show a right lower lobe pulmonary embolism. Anyway, the patient is currently admitted to the hospital. He is on IV heparin. Will start him on Xarelto today. Again, his right lower extremity Dopplers have been negative a couple times. The patient does appear to have chronic shortness of breath. He was a smoker in the past. Smoked about 25 years at 2 packs a day. States that when he is outside cutting the yard or doing anything exertional, he does get winded. He may have some chronic shortness of breath on top of what he apparently is experiencing from the blood clot. HOME MEDICATIONS: Reviewed. He is on Ventolin, aspirin, Trelegy, Crestor, Moduretic, Coreg, Advair HFA and Incruse. I am not sure why he is on so many different inhalers. Some of them should not be given with others. He might just be getting samples from various doctors. Other medications include [place], Mobic, and Senokot. ALLERGIES: Denied. PAST MEDICAL HISTORY: Apparently positive for COPD, CAD, myocardial infarction. PAST SURGICAL HISTORY: Includes heart catheterization with stent, and the right total knee arthroplasty. SOCIAL HISTORY: Positive for previous heavy tobacco use. As I mentioned, he smoked 25 years at 2 packs a day. Alcohol use is rare. No illicit drug use. FAMILY HISTORY: Positive for mother with cancer, a sister with cancer. Father who is healthy, a brother with coronary disease and myocardial infarction. A son who is healthy and a daughter who is also healthy. REVIEW OF SYSTEMS: CONSTITUTIONAL: Negative. NEUROLOGIC: Negative. HEENT: Negative. CARDIOVASCULAR: Negative. PULMONARY: Shortness of breath. GI: Negative. : Negative. RHEUMATOLOGIC: Right knee pain and swelling. IMMUNOLOGIC: Negative. ENDOCRINOLOGIC: Negative. DERMATOLOGIC: Negative. Current vital signs are reviewed, temperature 98.4, heart rate 83, respiratory rate 16, blood pressure 124/86 mean 98, room air saturation 96%. Appears is no acute distress. HEENT: Examination is grossly unremarkable. NECK: Supple, full range of motion. No adenopathy. Neck veins are flat. CARDIOVASCULAR: Examination reveals regular rhythm and rate. Heart sounds are distant. Heart rate about 80 beats per minute. No murmur. LUNGS: Reveal mostly clear breath sounds. No wheezes, rhonchi, or crackles. Breath sounds equal bilaterally. ABDOMEN: Obese. Bowel sounds are heard. EXTREMITIES: Reveal some swelling from the knee down on the right side. It is relatively mild. No cyanosis or clubbing. SKIN: Without rash. NEUROLOGIC: Examination is brief but nonfocal. LABORATORY DATA: Here includes a white count 7.7, hemoglobin 12, hematocrit 37.7, platelet count is about 310,000. PT, INR was 11.2 and 1.1. Current PTT is 140.6. Sodium, potassium chloride, CO2 all normal, anion gap normal. BUN and creatinine were normal. The rest of the CMP or comprehensive metabolic profile is normal. Microbiology is pending or negative. Venous Doppler done of the right leg was negative for DVT. A CT angiogram that was done on September 12 shows a positive result for pulmonary embolism in the right lower lobe. The patient was subsequently admitted. Medications are reviewed. ASSESSMENT: 1. Acute pulmonary embolism, right lower lobe, provoked. 2. Recent right total knee arthroplasty on August 29, 2019 as a risk factor for subsequent PE. 3. No evidence of DVT in the right leg. 4. History of coronary artery disease. 5. History of myocardial infarction. 6. Previous heart catheterization with stent. 7. Obesity. 8. Rule out chronic obstructive pulmonary disease as the patient did smoke for 25 years at 2 packs a day. PLAN: The patient has a provoked pulmonary embolism. He will be treated for 3 months. He may be started on Xarelto 50 mg twice a day for 21 days and then 20 mg a day thereafter. He should be treated for 3 months. The patient should get a followup CT angiogram in 8-10 weeks to make sure the clot in the right lower lobe is dissipated. Additional recommendations and suggestions are forthcoming. Heparin can be discontinued. The patient could be discharged home. No additional recommendations are made. Will continue to follow. AMILCARL / IJN: [id number] / MTDD
[2019-09-14] MEDS: RIVAROXABAN 15 MG TAB PO SCH (17:21)
[2019-09-14] MEDS: ATORVASTATIN 10 MG TAB PO SCH (20:53)
[2019-09-15] MEDS: MORPHINE SULFATE 4 MG/ML SYRINGE IV PRN ×2 (03:18→09:36)
[2019-09-15 06:13] LABS: Basophils # (A) 0.1 k/uL (0-0.2); Basophils % (A) 2 %; Eosinophils # (A) 0.4 k/uL (0-0.7); Eosinophils % (A) 5 %; HCT 37.6 % (39.0-53.0); Lymphocytes % (A) 27 %; MCH 31.2 pg (25.0-35.0); MCV 97.6 fL (80.0-100.0); Mean Platelet Volume 6.6; Monocytes # (A) 0.5 k/uL (0-1.0); Monocytes % (A) 7 %; Neutrophils % (A) 55 %; Platelet Count 295 k/uL (150-450); RBC 3.85 m/uL (4.30-5.90); RDW 12.6 % (11.5-15.5); WBC 7.2 k/uL (3.8-10.6)
[2019-09-15 06:17] LABS: INR 1.2 (<1.2); Prothrombin Time 12.3 sec (9.0-12.0)
[2019-09-15] MEDS: RIVAROXABAN 15 MG TAB PO SCH ×2 (06:27→17:32)
[2019-09-15] MEDS: Fluticasone/Salmeterol [Fluticasone-Salmeterol 232-14] 1 PUFF INHALATION SCH ×2 (07:49→19:23)
--- NOTE | 2019-09-15 09:16 | P.PN ---
Subjective Progress Note Date: 09/15/19 Principal diagnosis: Status post total right knee arthroplasty. Pulmonary embolism. This is a 64-year-old male who is approximately 2 weeks status post total right knee arthroplasty. The patient has had complaint of right lower extremity pain and swelling since surgery. He had an admission 1 week ago to rule out DVT. The first Doppler was inconclusive secondary to inability to completely exam due to pain. The second Doppler attempted was complete and was read as negative. The patient continued to have leg pain. He has recently developed shortness of breath. He was seen in our office yesterday and referred for a spiral CT scan of the chest to rule out PE. The tested showed a right lower lobe pulmonary embolism. He is admitted to internal medicine and we are consulted fourth. We were consulted for Follow-up regarding his right knee. 09/15/2019: The patient has no new complaints or concerns today. Vital signs are stable. Objective - Vital Signs Vital signs: Vital Signs Temp 98.4 F 09/15/19 03:54 Pulse 70 09/15/19 03:54 Resp 20 09/15/19 03:54 BP 121/75 09/15/19 03:54 Pulse Ox 96 09/15/19 03:54 Intake & Output 09/14/19 09/15/19 09/15/19 18:59 06:59 18:59 Intake Total 480 540 Output Total 300 Balance 180 540 Weight 133.5 kg Intake: Oral 480 540 Output: Urine 300 Other: Voiding Method Urinal # Voids 1 2 # Bowel Movements 0 - Exam this is a pleasant 62-year-old male in no acute distress. He is alert and oriented 3. He is lying in bed and is comfortable. Exam of the right lower extremity reveals that his incision is healing well. There is no erythema or e cchymosis. Soft tissue swelling is improved. He has near full extension of the knee today and flexion past 90. He has improved foot and ankle motion. Neurovascular status to the lower extremity is grossly intact. - Labs CBC & Chem 7: 09/15/19 05:29 09/14/19 05:35 Labs: Abnormal Lab Results - Last 24 Hours (Table) 09/14/19 09/15/19 09/15/19 Range/Units 13:04 05: 05:29 RBC 3.85 L (4.30-5.90) m/uL Hgb 12.0 L (13.0-17.5) gm/dL Hct 37.6 L (39.0-53.0) % PT 12.3 H (9.0-12.0) sec INR 1.2 H (<1.2) APTT 140.6 H* (22.0-30.0) sec Assessment and Plan (1) Pulmonary embolism Current Visit: Yes Status: Acute Code(s): I26.99 - OTHER PULMONARY EMBOLISM WITHOUT ACUTE COR PULMONALE SNOMED Code(s): 88628698 (2) Edema of right lower extremity Current Visit: No Status: Acute Code(s): R60.0 - LOCALIZED EDEMA SNOMED Code(s): 117342758 (3) S/P total knee arthroplasty Current Visit: No Status: Acute Code(s): Z96.659 - PRESENCE OF UNSPECIFIED ARTIFICIAL KNEE JOINT SNOMED Code(s): 9211152148285 Plan: The clinical and radiographic findings are discussed the patient. He may be up with physical therapy when cleared with medicine and pulmonary/critical care. he may be discharged to home when cleared medically. Follow-up in [address] Contreras.
[2019-09-15] MEDS: TRIAMTERENE-HCTZ 37.5-25MG 1 EACH TAB PO SCH (09:35)
[2019-09-15] MEDS: SENNOSIDES-DOCUSATE SODIUM 1 EACH TAB PO SCH ×2 (09:35→19:53)
[2019-09-15] MEDS: carvediloL 3.125 MG TAB PO SCH ×2 (09:36→19:53)
--- NOTE | 2019-09-15 14:27 | PN ---
PROGRESS NOTE PULMONARY/CRITICAL CARE PROGRESS NOTE: DATE OF SERVICE: 09/15/2019 This is a 64-year-old gentleman who we saw yesterday in consultation. He had a small pulmonary embolism to the right lower lobe. He had a recent right total knee arthroplasty on August 28 by one of the orthopedic surgeons. The patient was evaluated for DVT in the right leg. It was negative. Currently, he is doing well. Yesterday, the IV heparin was discontinued. He was placed on Xarelto. He will take his relative 15 mg twice a day for 21 days and then 20 mg once a day for a total of 3 months. This is a provoked pulmonary embolism. Current vital signs are reviewed. Temperature is 96.3, heart rate 99, respiratory rate 20, blood pressure 156/84 mean 108, room air saturation 95%. Appears in no acute distress. HEENT: Examination is grossly unremarkable. NECK: Supple, full range of motion. No adenopathy. Neck veins are flat. CARDIOVASCULAR: Examination reveals regular rhythm and rate. S1, S2 normal. There is no murmur. LUNGS: Relatively clear. Breath sounds equal. No wheezes, rhonchi, or crackles. ABDOMEN: Soft, bowel sounds are heard. EXTREMITIES: Reveal some swelling and tenderness to the right knee. Nose. No cyanosis or clubbing. SKIN: Without rash. NEUROLOGIC: Examination is nonfocal. LABS: Reviewed. White count 7.2, hemoglobin 12, hematocrit 37.6, platelet count 395,000, PT, INR were 12.3 and 1.2. The heparin was discontinued yesterday. Microbiology is negative. No x-rays to report. Medications are reviewed. ASSESSMENT: 1. Acute pulmonary embolism, right lower lobe, provoked. 2. Recent right total knee arthroplasty on August 29, 2019 as a risk factor for subsequent pulmonary embolism. 3. No evidence of deep VT in the right leg. 4. History of coronary artery disease. 5. History of myocardial infarction. 6. Previous heart catheterization with stent. 7. Obesity. 8. Possible underlying COPD from July 05 years of tobacco use at 2 packs a day. PLAN: From our perspective, the patient is to be discharged. The patient should be treated for a total of 3 months. He has a provoked pulmonary embolism. The patient will need a followup CT angiogram of the chest in 8-10 weeks. I would be happy to see him in the clinic. No additional recommendations are made. I passed on my thoughts to the orthopedic PA. TREY / CONNIE: [id number] /
[2019-09-15] MEDS: oxyCODONE-APAP 5-325MG 1 EACH TAB PO PRN (19:31)
[2019-09-15] MEDS: ATORVASTATIN 10 MG TAB PO SCH (19:53)
--- NOTE | 2019-09-15 23:46 | P.PN ---
Subjective Progress Note Date: 09/14/19 Principal diagnosis: Acute pulmonary embolism Patient is 64-year-old male with a known history of coronary artery disease status post stent placement in 2013, recent right total knee replacement 2 weeks ago due to worsening shortness of breath. Patient presented initially presented to his orthopedic surgeons the office. She was found to have right knee swelling and leg swelling. Patient did have right knee aspiration done in the office. Patient has been having worsening shortness of breath for the past 1 week. Patient was sent to ER for computed tomography scan and diagnosed with right lower lobe pulmonary embolism. Patient is also complaining of right calf tenderness. Right lower extremity duplex scan is negative for DVT. Patient otherwise denied any complaints of fever or chills. No complaints of chest pain. No nausea vomiting or abdominal pain or diarrhea. Patient has been taking aspirin for anticoagulation after surgery. 09/14/2019 Patient is currently sitting on the side of the bed. Still complains of right leg pain. Swelling is improving. No complaints of chest pain or shortness of breath. No headache or dizziness or lightheadedness. Patient is being continued on Xarelto. Pulmonary and orthopedic surgery is following. Current medications reviewed. Objective - Vital Signs Vital signs: Vital Signs Temp 97.9 F 09/14/19 20:00 Pulse 82 09/14/19 20:00 Resp 18 09/14/19 20:00 BP 113/73 09/14/19 20:00 Pulse Ox 95 09/14/19 20:00 Intake & Output 09/14/19 09/14/19 09/15/19 06:59 18:59 06:59 Intake Total 286.813 480 Output Total 300 Balance 286.813 180 Intake: Intake, IV Titration 286.813 Amount Heparin Sod,Pork in 0.45% 286.813 NaCl 25,000 unit In 0.45 % NaCl 1 250ml.bag @ 17. 09 UNITS/KG/HR 23.008 mls /hr IV .[id number] [facility] Rx#: [id number] Oral 480 Output: Urine 300 Other: Voiding Method Urinal Urinal # Voids 1 1 # Bowel Movements 0 - Exam PHYSICAL EXAMINATION: Patient is lying in the bed comfortably, no acute distress, awake alert and oriented.. HEENT: Normocephalic. Neck is supple. Pupils reactive. Nostrils clear. Oral cavity is moist. Ears reveal no drainage. Neck reveals no JVD, carotid bruits, or thyromegaly. CHEST EXAMINATION: Trachea is central. Symmetrical expansion. Bibasilar diminished air entry. Lung veras clear to auscultation and percussion. CARDIAC: Normal S1, S2 with no gallops. No murmurs ABDOMEN: Soft. Bowel sounds normal. No organomegaly. No abdominal bruits. Extremities: Right lower extremity 2+ edema. No clubbing or cyanosis Neurologically awake, alert, oriented x3 with well-coordinated movements. No focal deficits noted Skin: No rash or skin lesions. Psychiatric: Coperative. Nonsuicidal Musculoskeletal: Right knee and lower activity swelling. surgical site intact. Decreased range of motion. - Labs CBC & Chem 7: 09/15/19 05:09/14/19 05:35 Labs: Abnormal Lab Results - Last 24 Hours (Table) 09/14/19 09/14/19 09/14/19 Range/Units 05:35 05:35 05:35 RBC 3.84 L (4.30-5.90) m/uL Hgb 12.0 L (13.0-17.5) gm/dL Hct 37.7 L (39.0-53.0) % APTT 32.1 H (22.0-30.0) sec Glucose 106 H (74-99) mg/dL 09/14/19 Range/Units 13:04 RBC (4.30-5.90) m/uL Hgb (13.0-17.5) gm/dL Hct (39.0-53.0) % APTT 140.6 H* (22.0-30.0) sec Glucose (74-99) mg/dL Assessment and Plan Assessment: Acute right lower lobe pulmonary embolism with recent history of right total knee arthroplasty. Duplex scan negative for DVT. Recent right total knee arthroplasty 2 weeks ago Morbid obesity with BMI 41.4 Coronary artery disease with history of stent placement History of [place] Previous history of smoking DVT prophylaxis patient is already on full anticoagulation Plan: Patient was continued on high intensity heparin drip. Currently started on oral anticoagulation with Xarelto. Continue the pain management and follow closely. Follow-up culture reports from the aspiration. Pulmonary and orthopedic surgery was consulted. We will follow up closely. Further recommendations based on the clinical was. Continue with home medications.
--- NOTE | 2019-09-15 23:48 | P.PN ---
Subjective Progress Note Date: 09/15/19 Principal diagnosis: Acute pulmonary embolism Patient is 64-year-old male with a known history of coronary artery disease status post stent placement in 2013, recent right total knee replacement 2 weeks ago due to worsening shortness of breath. Patient presented initially presented to his orthopedic surgeons the office. She was found to have right knee swelling and leg swelling. Patient did have right knee aspiration done in the office. Patient has been having worsening shortness of breath for the past 1 week. Patient was sent to ER for computed tomography scan and diagnosed with right lower lobe pulmonary embolism. Patient is also complaining of right calf tenderness. Right lower extremity duplex scan is negative for DVT. Patient otherwise denied any complaints of fever or chills. No complaints of chest pain. No nausea vomiting or abdominal pain or diarrhea. Patient has been taking aspirin for anticoagulation after surgery. 09/14/2019 Patient is currently sitting on the side of the bed. Still complains of right leg pain. Swelling is improving. No complaints of chest pain or shortness of breath. No headache or dizziness or lightheadedness. Patient is being continued on Xarelto. Pulmonary and orthopedic surgery is following. 09/15/2019 Patient is still complaining of right lower extremity swelling and pain mainly in the calf area and unable to bear weight completely. Currently on oral anticoagulation with Xarelto. Continued on PT OT and possible discharge with home physical therapy in the next 24 hours. No fever no chills. No chest pain or shortness of. Tolerating oral diet. Denied any constipation. No headache or dizziness. Current medications reviewed. Objective - Vital Signs Vital signs: Vital Signs Temp 98.2 F 09/15/19 19:20 Pulse 78 09/15/19 19:20 Resp 18 09/15/19 19:20 BP 125/80 09/15/19 19:20 Pulse Ox 95 09/15/19 19:20 Intake & Output 09/15/19 09/15/19 09/16/19 06:59 18:59 06:59 Intake Total 540 720 Balance 540 720 Weight 133.5 kg Intake: IV 0 .9 @ 20 0 Oral 540 720 Other: Voiding Method Urinal # Voids 2 - Exam PHYSICAL EXAMINATION: Patient is lying in the bed comfortably, no acute distress, awake alert and oriented.. HEENT: Normocephalic. Neck is supple. Pupils reactive. Nostrils clear. Oral cavity is moist. Ears reveal no drainage. Neck reveals no JVD, carotid bruits, or thyromegaly. CHEST EXAMINATION: Trachea is central. Symmetrical expansion. Bibasilar diminished air entry. Lung veras clear to auscultation and percussion. CARDIAC: Normal S1, S2 with no gallops. No murmurs ABDOMEN: Soft. Bowel sounds normal. No organomegaly. No abdominal bruits. Extremities: Right lower extremity 2+ edema. No clubbing or cyanosis Neurologically awake, alert, oriented x3 with well-coordinated movements. No focal deficits noted Skin: No rash or skin lesions. Psychiatric: Coperative. Nonsuicidal Musculoskeletal: Right knee and lower activity swelling. surgical site intact. Decreased range of motion. - Labs CBC & Chem 7: 09/15/19 05:29 09/14/19 05:35 Labs: Abnormal Lab Results - Last 24 Hours (Table) 09/15/19 09/15/19 Range/Units 05:29 05:29 RBC 3.85 L (4.30-5.90) m/uL Hgb 12.0 L (13.0-17.5) gm/dL Hct 37.6 L (39.0-53.0) % PT 12.3 H (9.0-12.0) sec INR 1.2 H (<1.2) Assessment and Plan Assessment: Acute right lower lobe pulmonary embolism with recent history of right total knee arthroplasty. Duplex scan negative for DVT. Recent right total knee arthroplasty 2 weeks ago Morbid obesity with BMI 41.4 Coronary artery disease with history of stent placement History of [place] Previous history of smoking DVT prophylaxis patient is already on full anticoagulation Plan: Patient was continued on high intensity heparin drip. Currently started on oral anticoagulation with Xarelto. Continue the pain management and follow closely. Follow-up culture reports from the aspiration. Pulmonary and orthopedic surgery was consulted. We will follow up closely. Further recommendations based on the clinical was. Continue with home medications.
[2019-09-16] MEDS: RIVAROXABAN 15 MG TAB PO SCH (06:21)
[2019-09-16] MEDS: oxyCODONE-APAP 5-325MG 1 EACH TAB PO PRN (06:23)
[2019-09-16 07:56] LABS: Basophils # (A) 0.1 k/uL (0-0.2); Basophils % (A) 2 %; Eosinophils # (A) 0.5 k/uL (0-0.7); Eosinophils % (A) 5 %; HCT 43.2 % (39.0-53.0); HGB 13.6 gm/dL (13.0-17.5); Lymphocytes # (A) 1.9 k/uL (1.0-4.8); Lymphocytes % (A) 22 %; MCH 30.9 pg (25.0-35.0); MCHC 31.5 g/dL (31.0-37.0); MCV 97.9 fL (80.0-100.0); Mean Platelet Volume 6.8; Monocytes # (A) 0.6 k/uL (0-1.0); Monocytes % (A) 7 %; Neutrophils # (A) 5.3 k/uL (1.3-7.7); Neutrophils % (A) 62 %; Platelet Count 364 k/uL (150-450); RBC 4.41 m/uL (4.30-5.90); RDW 12.8 % (11.5-15.5); WBC 8.6 k/uL (3.8-10.6)
[2019-09-16 08:04] LABS: INR 1.3 (<1.2); Prothrombin Time 13.2 sec (9.0-12.0)
[2019-09-16] MEDS: Fluticasone/Salmeterol [Fluticasone-Salmeterol 232-14] 1 PUFF INHALATION SCH (08:09)
[2019-09-16 08:13] VITALS: BP 117/73; PULSE 88; RESP 16; TEMP 98.2
[2019-09-16] MEDS: SENNOSIDES-DOCUSATE SODIUM 1 EACH TAB PO SCH (08:13)
[2019-09-16] MEDS: carvediloL 3.125 MG TAB PO SCH (08:13)
[2019-09-16] MEDS: TRIAMTERENE-HCTZ 37.5-25MG 1 EACH TAB PO SCH (08:13)
--- NOTE | 2019-09-16 08:52 | P.PN ---
Subjective Progress Note Date: 09/16/19 Principal diagnosis: Status post total right knee arthroplasty. Pulmonary embolism. This is a 64-year-old male who is approximately 2 weeks status post total right knee arthroplasty. The patient has had complaint of right lower extremity pain and swelling since surgery. He had an admission 1 week ago to rule out DVT. The first Doppler was inconclusive secondary to inability to completely exam due to pain. The second Doppler attempted was complete and was read as negative. The patient continued to have leg pain. He has recently developed shortness of breath. He was seen in our office yesterday and referred for a spiral CT scan of the chest to rule out PE. The tested showed a right lower lobe pulmonary embolism. He is admitted to internal medicine and we are consulted fourth. We were consulted for Follow-up regarding his right knee. 09/16/2019: The patient has no new complaints or concerns today. Vital signs are stable. Objective - Vital Signs Vital signs: Vital Signs Temp 98.2 F 09/16/19 08:00 Pulse 88 09/16/19 08:00 Resp 16 09/16/19 08:00 BP 117/73 09/16/19 08:00 Pulse Ox 97 09/16/19 08:00 Intake & Output 09/15/19 09/16/19 09/16/19 18:59 06:59 18:59 Intake Total 720 240 Balance 720 240 Weight 132.9 kg Intake: IV 0 .9 @ 20 0 Oral 720 240 Other: Voiding Method Urinal # Voids 2 - Exam this is a pleasant 64-year-old male in no acute distress. He is alert and orie nted 3. He is lying in bed and is comfortable. Exam of the right lower extremity reveals that his incision is healing well. There is no erythema or ecchymosis. Soft tissue swelling is improved. He has near full extension of the knee today and flexion past 90. He has improved foot and ankle motion. Neurovascular status to the lower extremity is grossly intact. - Labs CBC & Chem 7: 09/16/19 07:10 09/14/19 05:35 Labs: Abnormal Lab Results - Last 24 Hours (Table) 09/16/19 Range/Units 07:10 PT 13.2 H (9.0-12.0) sec INR 1.3 H (<1.2) Assessment and Plan (1) Pulmonary embolism Current Visit: Yes Status: Acute Code(s): I26.99 - OTHER PULMONARY EMBOLISM WITHOUT ACUTE COR PULMONALE SNOMED Code(s): 92641827 (2) Edema of right lower extremity Current Visit: No Status: Acute Code(s): R60.0 - LOCALIZED EDEMA SNOMED Code(s): 547043866 (3) S/P total knee arthroplasty Current Visit: No Status: Acute Code(s): Z96.659 - PRESENCE OF UNSPECIFIED ARTIFICIAL KNEE JOINT SNOMED Code(s): 0574889105381 Plan: The clinical and radiographic findings are discussed the patient. He may be up with physical therapy when cleared with medicine and pulmonary/critical care. he may be discharged to home when cleared medically. Follow-up in [address] Contreras.
[2019-09-16 12:11] LABS: Glucose,Whole Blood 140 mg/dL (75-99)
--- NOTE | 2019-09-16 14:13 | P.PN ---
Subjective Progress Note Date: 09/16/19 Principal diagnosis: Acute pulmonary embolism, in the right lower lobe, provoked On 09/16/2019 patient seen in follow-up on selective care unit. he is alert and awake, oriented 3, denies any shortness of breath, room air pulse ox 97%, hemodynamically stable, no complaints of chest pain, no hemoptysis, his been afebrile, patient has been transitioned to oral Xarelto. Patient has no specific complaints, no acute events overnight, vital signs have been stable. Patient is anticipated to be discharged home today. Objective - Vital Signs Vital signs: Vital Signs Temp 98.2 F 09/16/19 08:00 Pulse 88 09/16/19 08:00 Resp 16 09/16/19 08:00 BP 117/73 09/16/19 08:00 Pulse Ox 97 09/16/19 08:00 Intake & Output 09/15/19 09/16/19 09/16/19 18:59 06:59 18:59 Intake Total 720 480 Balance 720 480 Weight 132.9 kg Intake: IV 0 .9 @ 20 0 Oral 720 480 Other: Voiding Method Urinal # Voids 2 3 - Exam GENERAL EXAM: Alert, very pleasant, 64-year-old white male, on room air with pulse ox of 97%, comfortable in no apparent distress. HEAD: Normocephalic/atraumatic. EYES: Normal reaction of pupils, equal size. Conjunctiva pink, sclera white. NOSE: Clear with pink turbinates. THROAT: No erythema or exudates. NECK: No masses, no JVD, no thyroid enlargement, no adenopathy. CHEST: No chest wall deformity. Symmetrical expansion. LUNGS: Equal air entry with no crackles, wheeze, rhonchi or dullness. CVS: Regular rate and rhythm, normal S1 and S2, no gallops, no murmurs, no rubs ABDOMEN: Soft, nontender. No hepatosplenomegaly, normal bowel sounds, no guarding or rigidity. EXTREMITIES: No clubbing, right lower extremity edema, no cyanosis, 2+ pulses and upper and lower extremities. Right knee incision is clean dry and intact, healing well, no erythema or ecchymosis MUSCULOSKELETAL: Muscle strength and tone normal. SPINE: No scoliosis or deformity SKIN: No rashes CENTRAL NERVOUS SYSTEM: Alert and oriented -3. No focal deficits, tone is normal in all 4 extremities. PSYCHIATRIC: Alert and oriented -3. Appropriate affect. Intact judgment and insight. - Labs CBC & Chem 7: 09/16/19 07:10 09/14/19 05:35 Labs: Abnormal Lab Results - Last 24 Hours (Table) 09/16/19 09/16/19 Range/Units 07:10 11:49 PT 13.2 H (9.0-12.0) sec INR 1.3 H (<1.2) POC Glucose (mg/dL) 140 H (75-99) mg/dL Assessment and Plan Plan: Assessment: #1. Acute pulmonary embolism, and the right lower lobe, probable #2. Recent history of right total knee arthroplasty on 08/29/2019 as a risk factor for subsequent pulmonary embolism #3. No evidence of DVT in the right leg #4. History of coronary artery disease with PCI and stenting #5. History of myocardial infarction #6. Morbid obesity #7. Possible underlying COPD, patient carries 20 years of tobacco use at 2 pa cks a day Plan: Patient has been transitioned to oral anticoagulation with Xarelto, hemodyamically remains stable, patient is on room air, he denies any specific complaints, no acute events overnight, vital signs have been stable, he will need to be anticoagulated for the next 3 months, and he will need outpatient follow-up with Dr. Lackey in the office, and outpatient follow-up CT angiogram in 8-10 weeks. I performed a history & physical examination of the patient and discussed their management with my nurse practitioner, Genesis Ding. I reviewed the nurse practitioner's note and agree with the documented findings and plan of care. Lung sounds are positive for diminished breath sounds. The findings and the impression was discussed with the patient. I attest to the documentation by the nurse practitioner. Time with Patient: Less than 30
== END 2019-09-16 13:34 | disposition home health service (06) | DRG 176 ==
LOC: EC 13:27 → 3SCARD 14:13
PROVIDERS: ADMIT Internal Medicine; ATTEND Internal Medicine
DX: I26.99 Other pulmonary embolism without acute cor pulmonale (principal); Z68.41 Body mass index [BMI] 40.0-44.9, adult; E66.01 Morbid (severe) obesity due to excess calories; I25.10 Atherosclerotic heart disease of native coronary artery without angina pectoris; I25.2 Old myocardial infarction; J44.9 Chronic obstructive pulmonary disease, unspecified; Z96.651 Presence of right artificial knee joint; Z95.5 Presence of coronary angioplasty implant and graft; Z79.899 Other long term (current) drug therapy; Z79.82 Long term (current) use of aspirin; Z80.9 Family history of malignant neoplasm, unspecified; Z82.49 Family history of ischemic heart disease and other diseases of the circulatory system; R60.0 Localized edema; Z87.891 Personal history of nicotine dependence; Z11.59 Encounter for screening for other viral diseases
CPT/HCPCS: 36415; 80048; 80053; 84484; 85025; 85610; 85730; 93005; 96365; 96366; 96375; 96376; 99291

== ENCOUNTER → 2019-09-13 | Outpatient (CLI) | payer OTHER ==
--- NOTE | 2019-09-13 12:48 | CT ---
EXAMINATION TYPE: CT angio chest DATE OF EXAM: 09/13/2019 COMPARISON: CT chest 12/17/2018 HISTORY: SOB post op knee sx CT DLP: 963.8 mGycm Automated exposure control for dose reduction was used. CONTRAST: CTA scan of the thorax is performed with IV Contrast, patient injected with 80 mL of Isovue 370, pulm onary embolism protocol. MIP images are created and reviewed. 3D reconstructed images are created o n an independent workstation and reviewed. FINDINGS: LUNGS: The lungs are grossly clear, there is no concerning parenchymal mass or nodule identified. T here is no pleural effusion or pneumothorax seen. The tracheobronchial tree is patent. AORTA: No additional significant abnormality is seen. MEDIASTINUM: There is satisfactory enhancement of the pulmonary artery and its branches, there is seg mental filling defect right lower lobe, axial images #89, 90, extending peripherally. There are no g reater than 1 cm hilar or mediastinal lymph nodes. No pericardial effusion is seen. There are coron robert artery calcifications. OTHER: No additional significant abnormality is seen. IMPRESSION: POSITIVE FOR PULMONARY EMBOLISM RIGHT LOWER LOBE A Red level critical message alert has been initiated for Manny Contreras MD via the [employer] Critical Results System on 09/13/2019 12:45 PM. This message alert has been sent to Manny Contreras MD via the preferences provided by the clinician for the receipt of Radiology Critical Findings. Message ID [id number].
== END | disposition home or self-care (01) ==
LOC: RADCTMAIN 11:38
PROVIDERS: ATTEND Orthopaedic Surgery
DX: I26.99 Other pulmonary embolism without acute cor pulmonale (principal); Z85.828 Personal history of other malignant neoplasm of skin; Z87.891 Personal history of nicotine dependence; Z96.651 Presence of right artificial knee joint; Z47.1 Aftercare following joint replacement surgery
CPT/HCPCS: 71275; Q9967

== ENCOUNTER 2019-10-12 18:49 | Emergency (ER) | payer OTHER ==
[2019-10-12 18:56] VITALS: TEMP 97.5
[2019-10-12 18:57] VITALS: RESP 24
[2019-10-12] MEDS ORDERED: methylPREDNISolone SOD SUCCI 125 MG/2 ML VIAL IV STA (19:04)
[2019-10-12] MEDS ORDERED: diphenhydrAMINE 50 MG/ML 1 ML VIAL IVP STA (19:04)
[2019-10-12] MEDS ORDERED: FAMOTIDINE 20 MG/2 ML VIAL IV STA (19:04)
[2019-10-12] MEDS ORDERED: SODIUM CHLORIDE 0.9% 1,000 ML IV STA (19:05)
[2019-10-12] MEDS ORDERED: SODIUM CHLORIDE 0.9% 500 ML 500 ML IV STA (19:05)
[2019-10-12] MEDS ORDERED: ACETAMINOPHEN TAB 500 MG TAB PO STA (19:06)
--- NOTE | 2019-10-12 19:16 | ED ---
Allergic Reaction HPI - General Chief complaint: Allergic Reaction Stated complaint: multiple bee stings Time Seen by Provider: 10/12/19 18:57 Source: patient, RN notes reviewed Mode of arrival: wheelchair Limitations: no limitations - History of Present Illness Initial Comments: This is a 64-year-old male with a history of a recent right knee surgery and history of blood clots was on blood thinner who states he was stung by multiple wasps approximately 2 hours ago mostly in his right leg also some on his left leg and right arm. He complains very severe burning type pain no overt shortness of breath at this time however that he is very anxious and states it rose a lot. He has had no prior ear lasting reactions. He was noted to be hyperventilating upon arrival. Other complaints. MD Complaint: other - Related Data Home Medications Medication Instructions Recorded Confirmed Albuterol Sulfate [Ventolin HFA] 2 puff INHALATION RT-Q6H PRN 08/29/19 09/13/19 Aspirin [Adult Low Dose Aspirin EC] 81 mg PO DAILY 08/29/19 09/13/19 Fluticasone/Umeclidin/Vilanter 1 puff INHALATION RT-DAILY 08/29/19 09/13/19 [Trelegy Ellipta 100-62.5-25] Rosuvastatin Calcium 5 mg PO HS 08/29/19 09/13/19 Triamterene/Hydrochlorothiazid 1 tab PO DAILY 08/29/19 09/13/19 [Triamterene-Hctz 37.5-25 mg Tb] Umeclidinium [place] [Incruse 1 puff INHALATION RT-DAILY 08/29/19 09/13/19 Ellipta] carvediloL [Coreg] 3.125 mg PO BID 08/29/19 09/13/19 Fluticasone/Salmeterol 1 puff INHALATION RT-BID 09/05/19 09/13/19 [Fluticasone-Salmeterol 232-14] hydrOXYzine pamoate [Vistaril] 25 mg PO Q6H PRN 09/05/19 09/13/19 Previous Rx's Medication Instructions Recorded HYDROcodone/APAP 10-325MG [[place] 1 - 2 tab PO Q4-6H PRN #50 tab 08/29/19 10-325] Sennosides-Docusate Sodium 1 tab PO BID #60 tablet 08/29/19 [Senokot-S] Rivaroxaban [Xarelto Starter Pack] 0 mg PO DIRECTED 30 Days #1 pack 09/14/19 Famotidine [Pepcid] 20 mg PO BID #10 tablet 10/12/19 Orphenadrine [Norflex] 100 mg PO Q12H #7 tablet.er 10/12/19 predniSONE [Deltasone] 20 mg PO BID #10 tab 10/12/19 Allergies Allergy/AdvReac Type Severity Reaction Status Date / Time No Known Allergies Allergy Verified 10/12/19 18:56 Review of Systems ROS Statement: Those systems with pertinent positive or pertinent negative responses have been documented in the HPI. ROS Other: All systems not noted in ROS Statement are negative. Past Medical History Past Medical History: Coronary Artery Disease (CAD), Myocardial Infarction ([place]) Additional Past Medical History / Comment(s): . Last Myocardial Infarction Date:: 2013 History of Any Multi-Drug Resistant Organisms: None Reported Past Surgical History: Heart Catheterization With Stent, Joint Replacement Additional Past Surgical History / Comment(s): rt knee Past Anesthesia/Blood Transfusion Reactions: No Reported Reaction Date of Last Stent Placement:: 2013 Past Psychological History: No Psychological Hx Reported Smoking Status: Former smoker Past Alcohol Use History: Rare Past Drug Use History: None Reported - Past Family History Mother Family Medical History: Cancer Sister(s) Family Medical History: Cancer Father History Unknown: Yes Brother(s) Family Medical History: Coronary Artery Disease (CAD), Myocardial Infarction ([place]) Son(s) Family Medical History: No Reported History Daughter(s) History Unknown: Yes General Exam - General Exam Comments Initial Comments: This is a well-developed well-nourished awake alert oriented times female who is anxious and hyperventilating. He was coached on controlling his breathing. Limitations: no limitations General appearance: alert, anxious, in distress Head exam: Present: atraumatic, normocephalic, normal inspection Eye exam: Present: normal appearance, PERRL, EOMI. Absent: scleral icterus, conjunctival injection, periorbital swelling ENT exam: Present: normal exam, mucous membranes moist Neck exam: Present: normal inspection, full ROM, other. Absent: tenderness, meningismus, lymphadenopathy Respiratory exam: Present: normal lung sounds bilaterally. Absent: respiratory distress, wheezes, rales, rhonchi, stridor Cardiovascular Exam: Present: normal rhythm, tachycardia, normal heart sounds. Absent: systolic murmur, diastolic murmur, rubs, gallop, clicks Extremities exam: Present: full ROM, normal capillary refill, other (Multiple areas consistent with wasp stings on the lower extremities a right forearm. No foreign body seen no bleeding no weeping.) Back exam: Present: normal inspection Neurological exam: Present: alert, oriented X3, CN II-XII intact Psychiatric exam: Present: anxious Skin exam: Present: warm, intact, rash, erythema Course Vital Signs 10/12/19 10/12/19 18:53 20:54 Temperature 97.5 F L Pulse Rate 107 H 87 Respiratory 24 24 Rate Blood Pressure 156/84 127/85 O2 Sat by Pulse 97 99 Oximetry - Reevaluation(s) Reevaluation #1: 10/12/19 20:11 Reassessment patient finds he feels no improvement thus far though he does look more comfortable he does have a ride home at this time he will be given some IV fentanyl for pain control. Medical Decision Making - Medical Decision Making The patient is started using some relief from the medications given his erythema is markedly improved this is the edema around the sting sites. He was stung [place] 14 times. He will be discharged on appropriate medication we did discuss the findings and the meds. He is in agreement with this Disposition Clinical Impression: Allergic reaction to insect sting Disposition: HOME SELF-CARE Condition: Good Instructions (If sedation given, give patient instructions): Insect Bite or Sting (ED) Additional Instructions: Medication prescriptions sent to [facility] to [facility] pharmacy Prescriptions: predniSONE [Deltasone] 20 mg PO BID #10 tab Orphenadrine [Norflex] 100 mg PO Q12H #7 tablet.er Famotidine [Pepcid] 20 mg PO BID #10 tablet Is patient prescribed a controlled substance at d/c from ED?: No Referrals: Cecilio Montero MD [Primary Care Provider] - 1-2 days
[2019-10-12] MEDS ORDERED: fentaNYL (PF) 50 MCG/ML 2 ML AMP IV STA (20:11)
[2019-10-12 20:55] VITALS: BP 127/85; PULSE 87
[2019-10-12] MEDS ORDERED: HYDROmorphone 1 MG/ML 1 ML SYRINGE IVP STA (20:55)
[2019-10-12] MEDS ORDERED: ORPHENADRINE 30 MG/ML 2 ML VIAL IVP STA (21:05)
[2019-10-12] MEDS ORDERED: ACET/COD 300 MG/30 MG STARTER PACK 6 TAB BTL PO STA (21:08)
== END 2019-10-12 21:23 | disposition home or self-care (01) ==
LOC: EC 18:49
DX: T63.481A Toxic effect of venom of other arthropod, accidental (unintentional), initial encounter (principal); I25.2 Old myocardial infarction; R00.0 Tachycardia, unspecified; Z79.82 Long term (current) use of aspirin; Z87.891 Personal history of nicotine dependence; Z95.5 Presence of coronary angioplasty implant and graft; Z96.651 Presence of right artificial knee joint
CPT/HCPCS: 99283; 96374; 96375 ×5; 96361 ×2; J1200; J2360; J2930; J3010; J1170

== ENCOUNTER → 2019-11-23 | Outpatient (CLI) | payer OTHER ==
--- NOTE | 2019-11-23 15:37 | CT ---
EXAMINATION TYPE: CT angio chest DATE OF EXAM: 11/23/2019 COMPARISON: CT chest 09/13/2019 HISTORY: Hx of right leg and pulmonary embolism CT DLP: 817 mGycm Automated exposure control for dose reduction was used. CONTRAST: CTA scan of the thorax is performed with IV Contrast, patient injected with 80 mL of Isovue 370, pulm onary embolism protocol. MIP images are created and reviewed. 3D reconstructed images are created o n an independent workstation and reviewed. FINDINGS: LUNGS: The lungs are grossly clear, there is no concerning parenchymal mass or nodule identified. T here is no pleural effusion or pneumothorax seen. The tracheobronchial tree is patent. AORTA: No additional significant abnormality is seen. MEDIASTINUM: There is left satisfactory enhancement of the pulmonary artery and its branches compared to prior exam, there is no CT evidence for pulmonary embolism. There are no greater than 1 cm hilar or mediastinal lymph nodes. No pericardial effusion is seen. There are coronary artery calcificati ons present OTHER: No additional significant abnormality is seen. IMPRESSION: PREVIOUSLY IDENTIFIED PULMONARY EMBOLISM IS NO LONGER SEEN.
== END | disposition home or self-care (01) ==
LOC: RADCTMAIN 14:16
PROVIDERS: ATTEND Internal Medicine
DX: I26.99 Other pulmonary embolism without acute cor pulmonale (principal)
CPT/HCPCS: 71275; Q9967

== ENCOUNTER → 2019-12-15 | Outpatient (CLI) | payer OTHER ==
--- NOTE | 2019-12-15 16:10 | US ---
EXAMINATION TYPE: US venous doppler duplex LE RT DATE OF EXAM: 12/15/2019 10:45 AM COMPARISON: US 09/13/2019 CLINICAL HISTORY: I80.9 Phlebitis and thrombophlebitis. History of PE. Patient currently taking blood thinners. Pain. History of right knee replacement. SIDE PERFORMED: Right TECHNIQUE: The lower extremity deep venous system is examined utilizing real time linear array sonog kathrin with graded compression, doppler sonography and color-flow sonography. VESSELS IMAGED: External Iliac Vein (EIV) Common Femoral Vein Deep Femoral Vein Greater Saphenous Vein * Femoral Vein Popliteal Vein Small Saphenous Vein * Proximal Calf Veins (* superficial vessels) Right Leg: Negative for deep venous thrombosis. Patient patient could not tolerate pressure of the p robe for sufficient compression imaging. Normal flow and vascular waveforms are seen. At the medial posterior right knee, there is a fluid collection visualized measuring 2.8 x 1.0 x 2.5 cm. IMPRESSION: 1. No deep venous thrombosis of the right lower extremity. 2. Popliteal fossa cyst measures 2.8 cm.
== END | disposition home or self-care (01) ==
LOC: RADUSWWP 10:17
PROVIDERS: ATTEND Orthopaedic Surgery
DX: M71.21 Synovial cyst of popliteal space [Baker], right knee (principal); I26.99 Other pulmonary embolism without acute cor pulmonale; Z86.711 Personal history of pulmonary embolism

== ENCOUNTER → 2020-08-16 | Outpatient (CLI) | payer OTHER ==
[2020-08-16 23:47] LABS: Basophils # (A) 0.14 X 10*3/uL (0.00-0.10); Basophils % (A) 1.6 %; Eosinophils # (A) 0.32 X 10*3/uL (0.04-0.35); Eosinophils % (A) 3.6 %; HCT 44.4 % (39.6-50.0); HGB 13.9 g/dL (13.0-17.0); Lymphocytes # (A) 2.26 X 10*3/uL (0.90-5.00); Lymphocytes % (A) 25.5 %; MCH 31.5 pg (27.0-32.0); MCHC 31.3 g/dL (32.0-37.0); MCV 100.7 fL (80.0-97.0); Mean Platelet Volume 9.7 fL (9.5-12.2); Monocytes # (A) 0.93 X 10*3/uL (0.20-1.00); Monocytes % (A) 10.5 %; Neutrophils # (A) 5.21 X 10*3/uL (1.80-7.70); Neutrophils % (A) 58.6 %; Platelet Count 254 X 10*3/uL (140-440); RBC 4.41 X 10*6/uL (4.40-5.60); RDW 12.8 % (11.5-14.5); WBC 8.88 X 10*3/uL (4.50-10.00)
[2020-08-17 02:03] LABS: African American GFR (CKD) 92.4 (60.0-200.0); Albumin 4.1 g/dL (3.80-4.90); Albumin/Globulin Ratio 1.37 (1.60-3.17); Anion Gap 8.1 mmol/L (4.00-12.00); Calcium 8.6 mg/dL (8.7-10.3); Carbon Dioxide 24.9 mmol/L (21.6-31.8); Non-African American GFR(CKD) 79.7 (60.0-200.0); Total Bilirubin 0.3 mg/dL (0.2-1.2); Total Protein 7.1 g/dL (6.2-8.2)
[2020-08-17 02:25] LABS: T4, Free (Free Thyroxine) 0.9 ng/dL (0.80-1.80)
[2020-08-17 03:43] LABS: Hemoglobin A1C 6.4 % (4.0-6.0)
== END | disposition home or self-care (01) ==
LOC: LABWHC1 15:24
PROVIDERS: ATTEND Internal Medicine
DX: E66.9 Obesity, unspecified (principal); R53.82 Chronic fatigue, unspecified
CPT/HCPCS: 36415; 80053; 83036; 84439; 84443; 84481; 85025